=== PATIENT | female | born 1985 | race Caucasian/White ===

== ENCOUNTER 2016-10-12 22:51 | Emergency (ER) | payer OTHER ==
[2016-10-12 22:59] VITALS: TEMP 98.4
[2016-10-13] MEDS ORDERED: IBUPROFEN 600 MG TAB PO STA (00:08)
--- NOTE | 2016-10-13 00:13 | ED ---
Chest Pain HPI - General Chief Complaint: Chest Pain Stated Complaint: chest pains Time Seen by Provider: 10/12/16 23:56 Source: patient, RN notes reviewed Mode of arrival: ambulatory Limitations: no limitations - History of Present Illness Initial Comments: Patient is a 31-year-old female presents to the emergency room for evaluation of chest pain. Patient states she began developing chest pain yesterday while running. Patient states the pain is worse whenever she is walking or running. Patient states the pain is worse whenever she takes a deep breath. Patient denies smoking. Patient denies history of asthma. Patient denies taking anything for pain. Patient denies shortness of breath. Patient states the pain feels like a stabbing sensation in her midsternal area. Patient denies nausea or vomiting. Patient denies headache or dizziness. Patient states she has minimal pain while sitting still. Patient denies any recent trauma to her chest. Patient denies recent heavy lifting or changes in physical activity. Patient states the pain is worse when she presses over her chest. Patient denies fevers or chills. - Related Data Previous Rx's Medication Instructions Recorded HYDROcodone/APAP 5-325MG [[place] 1 tab PO Q6HR PRN #20 tab 05/13/16 5-325] Penicillin V Potassium [Pen Vee K] 500 mg PO QID #40 tab 05/13/16 Ibuprofen [Motrin] 600 mg PO Q6HR PRN #20 tab 10/13/16 Allergies Allergy/AdvReac Type Severity Reaction Status Date / Time No Known Allergies Allergy Verified 10/12/16 22:59 Review of Systems ROS Statement: Those systems with pertinent positive or pertinent negative responses have been documented in the HPI. ROS Other: All systems not noted in ROS Statement are negative. EKG Findings - EKG Comments: EKG Findings:: Normal sinus rhythm, ventricular rate 90 bpm, NM interval 162 ms , QRS duration 80 ms, QT/QTC 350/446 ms Past Medical History Past Medical History: Fibromyalgia History of Any Multi-Drug Resistant Organisms: None Reported Past Surgical History: Tubal Ligation Past Psychological History: No Psychological Hx Reported Smoking Status: Never smoker Past Alcohol Use History: None Reported Past Drug Use History: None Reported General Exam - General Exam Comments Initial Comments: Sitting in exam room, no acute distress. Limitations: no limitations General appearance: alert, in no apparent distress Head exam: Present: atraumatic, normocephalic, normal inspection Eye exam: Present: normal appearance ENT exam: Present: normal exam Neck exam: Present: normal inspection Respiratory exam: Present: normal lung sounds bilaterally, chest wall tenderness (Reproducible midsternal chest wall tenderness.). Absent: respiratory distress Cardiovascular Exam: Present: regular rate, normal rhythm, normal heart sounds GI/Abdominal exam: Present: soft. Absent: distended, tenderness, guarding, rebound, rigid Extremities exam: Present: normal inspection Back exam: Present: normal inspection Neurological exam: Present: alert, oriented X3, CN II-XII intact, normal gait Psychiatric exam: Present: normal affect, normal mood Skin exam: Present: warm, dry, intact, normal color. Absent: rash Course Vital Signs 10/12/16 10/13/16 22:57 01:11 Temperature 98.4 F Pulse Rate 90 76 Respiratory 18 16 Rate Blood Pressure 128/75 123/65 O2 Sat by Pulse 98 99 Oximetry Chest Pain [facility] Patient is a 31-year-old female presents to the emergency room for evaluation chest pain. Chest pain is reproducible on palpation. Chest x-ray shows no acute findings. EKG within normal limits. Patient states she feels better after ibuprofen given. Chest pain most likely related to chest wall tenderness. Advised patient to refrain from physical activity and to follow up with her primary care provider in 24-48 hours. Patient states she understands everything that was discussed with her. Return parameters discussed. Case discussed with Dr. Kay. Disposition Clinical Impression: Costochondritis, acute Disposition: HOME SELF-CARE Condition: Good Instructions: Costochondritis (ED) Additional Instructions: Take ibuprofen as needed for pain. Refrain from heavy lifting. Please follow up with primary care provider for reevaluation in 24-48 hours. If any new symptom arises or symptoms worsen, return to ER as soon as possible. Prescriptions: Ibuprofen [Motrin] 600 mg PO Q6HR PRN #20 tab PRN Reason: Pain Referrals: Nasim Resendiz MD [Primary Care Provider] - 1-2 days Time of Disposition: :
--- NOTE | 2016-10-13 00:57 | XR ---
EXAM: XR Chest, 2 Views CLINICAL HISTORY: Cough. TECHNIQUE: Frontal and lateral views of the chest. COMPARISON: CXR dated 03/21/2014. FINDINGS: Lungs: No focal consolidation. No evidence of pulmonary edema. Pleural space: No pleural effusion. No pneumothorax. Heart: Unremarkable. No cardiomegaly. Mediastinum: Unremarkable. Bones/joints: Unremarkable. IMPRESSION: No radiographic evidence of acute cardiopulmonary process.
[2016-10-13 01:11] VITALS: BP 123/65; PULSE 76; RESP 16
== END 2016-10-13 01:11 | disposition home or self-care (01) ==
LOC: EC 22:51
DX: M94.0 Chondrocostal junction syndrome [Tietze] (principal)
CPT/HCPCS: 71020; 93005; 99285

== ENCOUNTER 2016-11-06 21:23 | Emergency (ER) | payer OTHER ==
[2016-11-06 21:37] VITALS: BP 110/64; PULSE 85; RESP 16; TEMP 98.9
[2016-11-06] MEDS ORDERED: CYCLOBENZAPRINE 10 MG TAB PO STA (21:46)
--- NOTE | 2016-11-06 21:50 | ED ---
General Adult HPI - General Chief complaint: Headache Stated complaint: Headache x 4 Time Seen by Provider: 11/06/16 21:39 Source: patient, RN notes reviewed Mode of arrival: ambulatory Limitations: no limitations - History of Present Illness Initial comments: 31-year-old female presents emergency Department chief complaint left-sided neck , head pain. Patient states that this isn't present last 4 days. She states the symptoms always been in the morning gets worse with the day. She states that has gone away. Patient states that it hurts when she looks left and right are when she tilts back. She states that feels like it's in the muscle in the sharp pain. Patient denies any trauma. She states she woke up felt that she slept wrong. Patient denies any blurred vision, dizziness, fever, chills, trauma, focal weakness. Patient states that she does take [place] currently he states that does alleviate the symptoms went wears off it comes back. - Related Data Home Medications Medication Instructions Recorded Confirmed DULoxetine HCL [Cymbalta] 30 mg PO DAILY 11/06/16 11/06/16 Previous Rx's Medication Instructions Recorded HYDROcodone/APAP 5-325MG [[place] 1 tab PO Q6HR PRN #20 tab 05/13/16 5-325] Allergies Allergy/AdvReac Type Severity Reaction Status Date / Time No Known Allergies Allergy Verified 11/06/16 21:37 Review of Systems ROS Statement: Those systems with pertinent positive or pertinent negative responses have been documented in the HPI. ROS Other: All systems not noted in ROS Statement are negative. Past Medical History Past Medical History: Fibromyalgia History of Any Multi-Drug Resistant Organisms: None Reported Past Surgical History: Tubal Ligation Past Psychological History: No Psychological Hx Reported Smoking Status: Never smoker Past Alcohol Use History: None Reported Past Drug Use History: None Reported General Exam Limitations: no limitations General appearance: alert, in no apparent distress Head exam: Present: atraumatic, normocephalic, normal inspection Eye exam: Present: normal appearance, PERRL, EOMI. Absent: scleral icterus, conjunctival injection, periorbital swelling ENT exam: Present: normal exam, normal oropharynx, mucous membranes moist, TM's normal bilaterally, normal external ear exam Neck exam: Present: normal inspection, tenderness (tenderness over the left trapezius, paraspinal no vertebral tenderness and no step-off deformity), full ROM (moderate discomfort with rotation left Monday and extension of the neck). Absent: meningismus, lymphadenopathy Respiratory exam: Present: normal lung sounds bilaterally. Absent: respiratory distress, wheezes, rales, rhonchi, stridor Cardiovascular Exam: Present: regular rate, normal rhythm, normal heart sounds. Absent: systolic murmur, diastolic murmur, rubs, gallop, clicks Extremities exam: Present: other (full strength all extremities equal bilaterally) Neurological exam: Present: alert, oriented X3, CN II-XII intact, reflexes normal. Absent: motor sensory deficit Skin exam: Present: warm, dry, intact, normal color. Absent: rash Course Vital Signs 11/06/16 21:35 Temperature 98.9 F Pulse Rate 85 Respiratory 16 Rate Blood Pressure 110/64 O2 Sat by Pulse 99 Oximetry Medical Decision Making - Medical Decision Making 31-year-old female presented for head and neck pain. Patient has left trapezius muscle spasm and she has headache related to this. Patient has no neurological deficits. Patient's symptoms to come and go worse throughout the day after she's been up and moving more. Patient be discharged on Flexeril advised to do gentle stretching, heat and ice for 20 minutes at time. Return parameters were discussed. Disposition Clinical Impression: Trapezius muscle strain, Trapezius muscle spasm Disposition: HOME SELF-CARE Condition: Stable Instructions: Muscle Spasm (ED) Additional Instructions: Please return to the Emergency Department if symptoms worsen or any other concerns. Referrals: Nasim Resendiz MD [Primary Care Provider] - 1-2 days Time of Disposition: 21:50
== END 2016-11-06 22:00 | disposition home or self-care (01) ==
LOC: EC 21:23
DX: S29.012A Strain of muscle and tendon of back wall of thorax, initial encounter (principal); R51 Headache; M79.7 Fibromyalgia; Z79.899 Other long term (current) drug therapy; X58.XXXA Exposure to other specified factors, initial encounter
CPT/HCPCS: 99283

== ENCOUNTER 2017-01-14 16:39 | Emergency (ER) | payer OTHER ==
--- NOTE | 2017-01-14 17:04 | ED ---
General Adult HPI - General Chief complaint: Extremity Injury, Lower Stated complaint: Right Ankle Pain Time Seen by Provider: 01/14/17 16:50 Source: patient, RN notes reviewed Mode of arrival: ambulatory Limitations: no limitations - History of Present Illness Initial comments: This is a 31-year-old female comes into the emergency department complaining that her right ankle hurts. Patient states she twisted 2 weeks ago and she decided to get it checked today. Patient states is a little area of tenderness on the lateral aspect of her right ankle. Patient denies any medial ankle pain. Patient denies any foot or heel pain. Patient denies any other symptoms. - Related Data Home Medications Medication Instructions Recorded Confirmed DULoxetine HCL [Cymbalta] 60 mg PO DAILY 11/06/16 01/14/17 Previous Rx's Medication Instructions Recorded HYDROcodone/APAP 5-325MG [[place] 1 tab PO Q6HR PRN #20 tab 05/13/16 5-325] Ibuprofen [Motrin] 600 mg PO Q6HR PRN #20 tab 01/14/17 Allergies Allergy/AdvReac Type Severity Reaction Status Date / Time No Known Allergies Allergy Verified 01/14/17 16:52 Review of Systems ROS Statement: Those systems with pertinent positive or pertinent negative responses have been documented in the HPI. ROS Other: All systems not noted in ROS Statement are negative. Past Medical History Past Medical History: Fibromyalgia History of Any Multi-Drug Resistant Organisms: None Reported Past Surgical History: Tubal Ligation Past Psychological History: No Psychological Hx Reported Smoking Status: Never smoker Past Alcohol Use History: None Reported Past Drug Use History: None Reported General Exam - General Exam Comments Initial Comments: GENERAL Patient is well-developed and well-nourished. Patient is in mild distress. EYES Patient's pupils are equal and round. Extraocular motion is intact SKIN Unremarkable NEURO The patient is alert and oriented 3 PYSCH Patient has normal interpersonal interactions. MUSCULOSKELETAL Right ankle shows some swelling on the lateral aspect of the malleolus Limitations: no limitations Course Vital Signs 01/14/17 16:50 Temperature 98.0 F Pulse Rate 99 Respiratory 18 Rate Blood Pressure 110/66 O2 Sat by Pulse 99 Oximetry Medical Decision Making - Medical Decision Making X-ray of the ankle shows no acute injury Disposition Clinical Impression: Sprained ankle Disposition: HOME SELF-CARE Instructions: Ankle Sprain (ED) Prescriptions: Ibuprofen [Motrin] 600 mg PO Q6HR PRN #20 tab PRN Reason: For pain Referrals: Nasim Resendiz MD [Primary Care Provider] - 1-2 days Time of Disposition: 18:26
--- NOTE | 2017-01-14 18:09 | XR ---
Exam: Right ankle complete 3 views of the right ankle were obtained. HISTORY: Twisting injury 2 weeks ago with continued pain. FINDINGS: No acute fracture or subluxation is identified. The ankle mortise is intact. There is no radiopaque f oreign body. IMPRESSION: No acute abnormality is identified.
[2017-01-14 18:43] VITALS: BP 109/65; PULSE 88; RESP 16; TEMP 97.9
== END 2017-01-14 18:44 | disposition home or self-care (01) ==
LOC: EC 16:39
DX: S93.401A Sprain of unspecified ligament of right ankle, initial encounter (principal); M79.7 Fibromyalgia; Z79.899 Other long term (current) drug therapy; X50.1XXA Overexertion from prolonged static or awkward postures, initial encounter
CPT/HCPCS: 99283

== ENCOUNTER 2017-12-07 15:54 | Emergency (ER) | payer OTHER ==
[2017-12-07 16:01] VITALS: BP 117/78; PULSE 76; RESP 18; TEMP 98
--- NOTE | 2017-12-07 16:42 | ED ---
Lower Extremity Injury HPI - General Chief Complaint: Extremity Injury, Lower Stated Complaint: foot injury Time Seen by Provider: 12/07/17 16:20 Source: patient, RN notes reviewed Mode of arrival: ambulatory Limitations: no limitations - History of Present Illness Initial Comments: This is a 32-year-old female who presents to the emergency department with chief complaint of right foot injury. Patient states that earlier today she was playing basketball barefoot. She states that she twisted funny and cut the bottom of her right foot. Denies any bleeding. Denies any other injuries or trauma. Denies recent fevers or chills, chest pain or shortness of breath, abdominal pain, nausea or vomiting, numbness or tingling. - Related Data Home Medications Medication Instructions Recorded Confirmed DULoxetine HCL [Cymbalta] 60 mg PO DAILY 12/07/17 12/07/17 HYDROcodone/APAP 5-325MG [[place] 1 tab PO Q6HR PRN 12/07/17 12/07/17 5-325] Allergies Allergy/AdvReac Type Severity Reaction Status Date / Time No Known Allergies Allergy Verified 12/07/17 16:13 Review of Systems ROS Statement: Those systems with pertinent positive or pertinent negative responses have been documented in the HPI. ROS Other: All systems not noted in ROS Statement are negative. Past Medical History Past Medical History: Fibromyalgia History of Any Multi-Drug Resistant Organisms: None Reported Past Surgical History: Tubal Ligation Past Psychological History: No Psychological Hx Reported Smoking Status: Never smoker Past Alcohol Use History: None Reported Past Drug Use History: None Reported General Exam - General Exam Comments Initial Comments: General: Awake and alert, well-developed; in no apparent distress. HEENT: Head atraumatic, normocephalic. Pupils are equal, round and reactive to light. Extraocular movements intact. Oropharynx moist without erythema or exudate. Neck: Supple. Normal ROM. Cardiovascular: Regular rate and rhythm. No murmurs, rubs or gallops. Chest symmetrical. Respiratory: Lungs clear to auscultation bilaterally. No wheezes, rales or rhonchi. Normal respiratory effort with no use of accessory muscles. Musculoskeletal: Normal ROM, no tenderness bilateral upper and lower extremities. Ambulating normally. Skin: [employer], warm and dry with flap-like skin avulsion right plantar surface just proximal to the fourth and fifth digits. No bleeding. Neurological: Alert and oriented x3. CN II-XII grossly intact. Speech is fluent and answers are appropriate. No focal neuro deficits. Psychiatric: Normal mood and affect. No overt signs of depression or anxiety noted. Limitations: no limitations Course Vital Signs 12/07/17 16:00 Temperature 98 F Pulse Rate 76 Respiratory 18 Rate Blood Pressure 117/78 O2 Sat by Pulse 98 Oximetry Medical Decision Making - Medical Decision Making This is a 32-year-old female who presents to the emergency department with chief complaint of right foot injury. Patient cut the bottom of her foot on cement while playing basketball earlier today. She sustained a very superficial , small flap-like skin avulsion to the plantar surface of her right foot. No bleeding. Normal range of motion and is neurovascularly intact. She will be discharged home at this time. She is in no acute distress. Vital signs are stable. She is in agreement and voices understanding. All questions answered. Disposition Clinical Impression: Skin avulsion Disposition: HOME SELF-CARE Condition: Good Instructions: Skin Avulsion (ED) Additional Instructions: Please follow up with primary care provider within 1-2 days. Return to emergency department if symptoms should worsen or any concerns arise. Is patient prescribed a controlled substance at d/c from ED?: No Referrals: Nasim Resendiz MD [Primary Care Provider] - 1-2 days Time of Disposition: 16:42
== END 2017-12-07 16:52 | disposition home or self-care (01) ==
LOC: EC 15:54
DX: S91.301A Unspecified open wound, right foot, initial encounter (principal); Z79.899 Other long term (current) drug therapy; X50.1XXA Overexertion from prolonged static or awkward postures, initial encounter; Y93.67 Activity, basketball
CPT/HCPCS: 99283

== ENCOUNTER 2018-04-11 18:21 | Emergency (ER) | payer OTHER ==
[2018-04-11 18:34] VITALS: RESP 18
[2018-04-11] MEDS ORDERED: SODIUM CHLORIDE 0.9% 1,000 ML IV STA (19:23)
[2018-04-11] MEDS ORDERED: KETOROLAC 30 MG/ML 1 ML VIAL IVP STA (19:23)
[2018-04-11] MEDS ORDERED: ONDANSETRON 4 MG/2 ML VIAL IVP STA (19:26)
--- NOTE | 2018-04-11 20:06 | ED ---
General Adult HPI - General Chief complaint: Back Pain/Injury Stated complaint: back pain Time Seen by Provider: 04/11/18 19:00 Source: patient, RN notes reviewed Mode of arrival: ambulatory Limitations: no limitations - History of Present Illness Initial comments: 32-year-old female with a history of fibromyalgia presents to the emergency department for right flank pain times one day. Patient states this is somewhat consistent with her fibromyalgia but is somewhat worse. Patient states it is sharp and radiating around her side. Patient denies any radiating pain into her groin. Patient denies any abdominal pain. She does admit to nausea but denies any vomiting or diarrhea. Patient states she has been taking [place] for the pain but it has not been helping. Patient denies any midline spine pain. She denies any saddle anesthesia or changes in bladder or bowel movements. Patient denies any urinary symptoms such as pain with urination or urinary frequency. She denies noting any blood in the urine. Patient denies a history of kidney stones. Patient has no other complaints at this time including shortness of breath, chest pain, abdominal pain, headache, or visual changes. - Related Data Home Medications Medication Instructions Recorded Confirmed DULoxetine HCL [Cymbalta] 60 mg PO DAILY 12/07/17 04/11/18 HYDROcodone/APAP 5-325MG [[place] 1 tab PO Q6HR PRN 12/07/17 04/11/18 5-325] Previous Rx's Medication Instructions Recorded Cephalexin [Keflex] 500 mg PO Q6HR 10 Days cap 04/11/18 Allergies Allergy/AdvReac Type Severity Reaction Status Date / Time No Known Allergies Allergy Verified 04/11/18 23:18 Review of Systems ROS Statement: Those systems with pertinent positive or pertinent negative responses have been documented in the HPI. ROS Other: All systems not noted in ROS Statement are negative. Past Medical History Past Medical History: Fibromyalgia History of Any Multi-Drug Resistant Organisms: None Reported Past Surgical History: Tubal Ligation Past Psychological History: No Psychological Hx Reported Smoking Status: Never smoker Past Alcohol Use History: None Reported Past Drug Use History: None Reported General Exam Limitations: no limitations General appearance: alert, in no apparent distress Head exam: Present: atraumatic, normocephalic, normal inspection Eye exam: Present: normal appearance, PERRL, EOMI. Absent: scleral icterus, conjunctival injection, periorbital swelling ENT exam: Present: normal exam, mucous membranes moist Neck exam: Present: normal inspection, full ROM. Absent: tenderness, meningismus, lymphadenopathy Respiratory exam: Present: normal lung sounds bilaterally. Absent: respiratory distress, wheezes, rales, rhonchi, stridor Cardiovascular Exam: Present: regular rate, normal rhythm, normal heart sounds. Absent: systolic murmur, diastolic murmur, rubs, gallop, clicks GI/Abdominal exam: Present: soft, normal bowel sounds. Absent: distended, tenderness, guarding, rebound, rigid Back exam: Present: CVA tenderness (R). Absent: CVA tenderness (L) Neurological exam: Present: alert, oriented X3, CN II-XII intact Psychiatric exam: Present: normal affect, normal mood Course Vital Signs 04/11/18 04/11/18 18:31 21:44 Temperature 98.2 F 97.8 F Pulse Rate 87 64 Respiratory 18 18 Rate Blood Pressure 125/75 117/72 O2 Sat by Pulse 100 99 Oximetry Medical Decision Making - Medical Decision Making 32-year-old female presents to the emergency determine for chief of right flank pain times one day. Patient denies any radiating pain to her groin. She denies any urinary symptoms. Patient denies any abdominal pain. On exam patient does have right CVA tenderness. Cells are stable and patient is afebrile. White blood cell count 17.1, CMP unremarkable. Urine shows evidence of infection. CT shows new right-sided hydronephrosis and proximal hydroureter compared to old exam. she was seen which could relate to nonopaque stone or recently passed stone. Patient likely has a pyelonephritis which is causing her right flank pain. Patient was given a dose of Rocephin here in the emergency department. She will be started on Keflex 4 times daily and discharged home. Patient agrees with this plan of care and states she would like to go home. Patient will follow up with primary care or urology in 1-2 days. Patient will return immediately to the emergency Department if she has any worsening symptoms or fevers. - Lab Data Result diagrams: 04/11/18 20:05 04/11/18 20:05 Lab Results 04/11/18 04/11/18 04/11/18 Range/Units 20:05 20:05 20:05 WBC 17.1 H (3.8-10.6) k/uL RBC 4.51 (3.80-5.40) m/uL Hgb 13.2 (11.4-16.0) gm/dL Hct 39.9 (34.0-46.0) % MCV 88.5 (80.0-100.0) fL MCH 29.1 (25.0-35.0) pg MCHC 33.0 (31.0-37.0) g/dL RDW 13.5 (11.5-15.5) % Plt Count 256 (150-450) k/uL Neutrophils % 74 % Lymphocytes % 18 % Monocytes % 5 % Eosinophils % 2 % Basophils % 0 % Neutrophils # 12.7 H (1.3-7.7) k/uL Lymphocytes # 3.0 (1.0-4.8) k/uL Monocytes # 0.8 (0-1.0) k/uL Eosinophils # 0.3 (0-0.7) k/uL Basophils # 0.1 (0-0.2) k/uL Sodium 139 (137-145) mmol/L Potassium 4.0 (3.5-5.1) mmol/L Chloride 108 H (98-107) mmol/L Carbon Dioxide 24 (22-30) mmol/L Anion Gap 7 mmol/L BUN 9 (7-17) mg/dL Creatinine 0.64 (0.52-1.04) mg/dL Est GFR (CKD-EPI)AfAm >90 (>60 ml/min/1.73 sqM) Est GFR (CKD-EPI)NonAf >90 (>60 ml/min/1.73 sqM) Glucose 87 (74-99) mg/dL Calcium 9.7 (8.4-10.2) mg/dL Total Bilirubin 0.3 (0.2-1.3) mg/dL AST 17 (14-36) U/L ALT 25 (9-52) U/L Alkaline Phosphatase 95 (38-126) U/L Total Protein 7.2 (6.3-8.2) g/dL Albumin 3.9 (3.5-5.0) g/dL Amylase 57 (30-110) U/L Lipase 56 (23-300) U/L Urine Color Urine Appearance (Clear) Urine pH (5.0-8.0) Ur Specific [place] (1.001-1.035) Urine Protein (Negative) Urine Glucose (UA) (Negative) Urine Ketones (Negative) Urine Blood (Negative) Urine Nitrite (Negative) Urine Bilirubin (Negative) Urine Urobilinogen (<2.0) mg/dL Ur Leukocyte Esterase (Negative) Urine RBC (0-5) /hpf Urine WBC (0-5) /hpf Urine WBC Clumps (None) /hpf Ur Squamous Epith Cells (0-4) /hpf Urine Bacteria (None) /hpf Urine Mucus (None) /hpf Urine HCG, Qual Not Detected (Not Detectd) 04/11/18 Range/Units 20:05 WBC (3.8-10.6) k/uL RBC (3.80-5.40) m/uL Hgb (11.4-16.0) gm/dL Hct (34.0-46.0) % MCV (80.0-100.0) fL MCH (25.0-35.0) pg MCHC (31.0-37.0) g/dL RDW (11.5-15.5) % Plt Count (150-450) k/uL Neutrophils % % Lymphocytes % % Monocytes % % Eosinophils % % Basophils % % Neutrophils # (1.3-7.7) k/uL Lymphocytes # (1.0-4.8) k/uL Monocytes # (0-1.0) k/uL Eosinophils # (0-0.7) k/uL Basophils # (0-0.2) k/uL Sodium (137-145) mmol/L Potassium (3.5-5.1) mmol/L Chloride (98-107) mmol/L Carbon Dioxide (22-30) mmol/L Anion Gap mmol/L BUN (7-17) mg/dL Creatinine (0.52-1.04) mg/dL Est GFR (CKD-EPI)AfAm (>60 ml/min/1.73 sqM) Est GFR (CKD-EPI)NonAf (>60 ml/min/1.73 sqM) Glucose (74-99) mg/dL Calcium (8.4-10.2) mg/dL Total Bilirubin (0.2-1.3) mg/dL AST (14-36) U/L ALT (9-52) U/L Alkaline Phosphatase (38-126) U/L Total Protein (6.3-8.2) g/dL Albumin (3.5-5.0) g/dL Amylase (30-110) U/L Lipase (23-300) U/L Urine Color Yellow Urine Appearance Cloudy H (Clear) Urine pH 6.5 (5.0-8.0) Ur Specific [place] 1.011 (1.001-1.035) Urine Protein 1+ H (Negative) Urine Glucose (UA) Negative (Negative) Urine Ketones Negative (Negative) Urine Blood Moderate H (Negative) Urine Nitrite Positive H (Negative) Urine Bilirubin Negative (Negative) Urine Urobilinogen <2.0 (<2.0) mg/dL Ur Leukocyte Esterase Large H (Negative) Urine RBC 31 H (0-5) /hpf Urine WBC >182 H (0-5) /hpf Urine WBC Clumps Many H (None) /hpf Ur Squamous Epith Cells 1 (0-4) /hpf Urine Bacteria Many H (None) /hpf Urine Mucus Few H (None) /hpf Urine HCG, Qual (Not Detectd) Disposition Clinical Impression: Pyelonephritis Disposition: HOME SELF-CARE Condition: Good Instructions: Kidney Infection (ED) Additional Instructions: Please take antibiotic as directed. Please take home pain medications for pain. Please return immediately to the emergency department if you develop fever or any worsening symptoms. Follow up with urology in 1-2 days. Prescriptions: Cephalexin [Keflex] 500 mg PO Q6HR 10 Days cap Is patient prescribed a controlled substance at d/c from ED?: No Referrals: Nasim Resendiz MD [Primary Care Provider] - 1-2 days Dante Ann MD [STAFF PHYSICIAN] - 1-2 days Time of Disposition: 23:08
[2018-04-11 20:20] LABS: Basophils # (A) 0.1 k/uL (0-0.2); Basophils % (A) 0 %; Eosinophils # (A) 0.3 k/uL (0-0.7); Eosinophils % (A) 2 %; HCT 39.9 % (34.0-46.0); HGB 13.2 gm/dL (11.4-16.0); Lymphocytes % (A) 18 %; MCH 29.1 pg (25.0-35.0); MCV 88.5 fL (80.0-100.0); Monocytes # (A) 0.8 k/uL (0-1.0); Monocytes % (A) 5 %; Neutrophils # (A) 12.7 k/uL (1.3-7.7); Neutrophils % (A) 74 %; Platelet Count 256 k/uL (150-450); RBC 4.51 m/uL (3.80-5.40); RDW 13.5 % (11.5-15.5); WBC 17.1 k/uL (3.8-10.6)
[2018-04-11 20:31] LABS: Appearance,Urine Cloudy (Clear); Bacteria,Urine Many /hpf; Bilirubin,Urine Negative (Negative); Blood,Urine Moderate (Negative); Color,Urine Yellow; Glucose,Urine (UA) Negative (Negative); Ketones,Urine Negative (Negative); Leukocyte Esterase,Urine Large (Negative); Mucus,Urine Few /hpf; Nitrite,Urine Positive (Negative); PH, Urine 6.5 (5.0-8.0); Protein,Urine 1+ (Negative); RBC,Urine 31 /hpf (0-5); Specific Gravity,Urine 1.011 (1.001-1.035); Squamous Epithelial Cell,Urine 1 /hpf (0-4); Urobilinogen,Urine <2.0 mg/dL (<2.0); WBC,Urine >182 /hpf (0-5)
[2018-04-11 20:32] LABS: ALT 25 U/L (9-52); AST 17 U/L (14-36); Albumin 3.9 g/dL (3.5-5.0); Alkaline Phosphatase 95 U/L (38-126); Amylase 57 U/L (30-110); Anion Gap 7 mmol/L; Blood Urea Nitrogen 9 mg/dL (7-17); Calcium 9.7 mg/dL (8.4-10.2); Carbon Dioxide 24 mmol/L (22-30); Chloride 108 mmol/L (98-107); Glucose 87 mg/dL (74-99); Lipase 56 U/L (23-300); Sodium 139 mmol/L (137-145); Total Bilirubin 0.3 mg/dL (0.2-1.3); Total Protein 7.2 g/dL (6.3-8.2)
--- NOTE | 2018-04-11 20:42 | CT ---
EXAMINATION TYPE: CT abdomen pelvis wo con DATE OF EXAM: 04/11/2018 COMPARISON: 08/28/2010 HISTORY: MIDDLE TO LOWER BACK PAIN CT DLP: 654.1 mGycm Automated exposure control for dose reduction was used. TECHNIQUE: Helical acquisition of images was performed from the lung bases through the pelvis. FINDINGS: The lung bases are clear. There is no pleural effusion. Heart size is normal. There is no pericardial effusion. Liver spleen pancreas gallbladder appear normal. Bile ducts are not dilated. There is no adrenal mass. Kidneys have normal size and contour. There is right-sided hydronephrosis a nd hydroureter. I see no definite ureteral calculus. Uterus is anteverted. Bladder distends smoothly. There is no free fluid in the pelvis. There is no inguinal hernia. Lumbar vertebra have normal spacing and alignment. Posterior elements are intact. Bony pelvis appears intact. I see no bony destructive process. There is no mesenteric adenopathy or edema. I see no intestinal wall thickening. There are no dilated loops. There are a few lymph nodes around the cecum. There is a clip probably from appendectomy. IMPRESSION: THERE IS NEW RIGHT-SIDED HYDRONEPHROSIS AND PROXIMAL HYDROURETER COMPARED TO OLD EXAM. NO CALCULUS SE EN. THIS COULD RELATE TO NONOPAQUE STONE OR RECENTLY PASSED STONE.
[2018-04-11 21:46] VITALS: BP 117/72; PULSE 64; TEMP 97.8
== END 2018-04-12 00:01 | disposition home or self-care (01) ==
LOC: EC 18:21
DX: N12 Tubulo-interstitial nephritis, not specified as acute or chronic (principal); N13.30 Unspecified hydronephrosis; M79.7 Fibromyalgia; Z79.899 Other long term (current) drug therapy
CPT/HCPCS: 36415; 80053; 82150; 83690; 85025; 81001; 81025; 87086; 74176; 99284; 96365; 96375 ×2; 96361 ×3; J2405; J0696; J1885

== ENCOUNTER 2019-11-22 22:14 | Emergency (ER) | payer OTHER ==
[2019-11-22 22:30] VITALS: RESP 18
--- NOTE | 2019-11-22 23:08 | XR ---
EXAMINATION TYPE: XR foot complete RT DATE OF EXAM: 11/22/2019 COMPARISON: None HISTORY: Foot pain TECHNIQUE: 3 views FINDINGS: Metatarsals appear intact. I see no fracture nor dislocation. Joint spaces are normal. Ther e are no erosions. There is small plantar calcaneal spurring. IMPRESSION: Negative right foot exam. No fracture.
--- NOTE | 2019-11-22 23:29 | ED ---
Extremity Problem HPI - General Chief complaint: Extremity Problem,Nontraumatic Stated complaint: Rt foot pain Time Seen by Provider: 11/22/19 22:34 Source: patient Mode of arrival: ambulatory Limitations: no limitations - History of Present Illness Initial comments: Patient is a 34-year-old female presenting to the emergency department with chief complaint of foot pain. States the symptoms do not want for approximately 6 months. However, the symptoms have been increasing severity over the last month. States most of the pain is located along the anterior aspect of the right foot as well as the medial aspect near the heel. Patient reports pain is worse throughout today and she continues to work. 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 Denies any direct trauma to the region. Denies previous injuries or surgeries to the region. Denies any erythema or ecchymosis. Denies taking medication to alleviate the symptoms. - Related Data Home Medications Medication Instructions Recorded Confirmed DULoxetine HCL [Cymbalta] 60 mg PO DAILY 12/07/17 04/11/18 HYDROcodone/APAP 5-325MG [[place] 1 tab PO Q6HR PRN 12/07/17 04/11/18 5-325] Previous Rx's Medication Instructions Recorded Cephalexin [Keflex] 500 mg PO Q6HR 10 Days cap 04/11/18 Allergies Allergy/AdvReac Type Severity Reaction Status Date / Time No Known Allergies Allergy Verified 11/22/19 22:30 Review of Systems ROS Statement: Those systems with pertinent positive or pertinent negative responses have been documented in the HPI. ROS Other: All systems not noted in ROS Statement are negative. Past Medical History Past Medical History: Fibromyalgia History of Any Multi-Drug Resistant Organisms: None Reported Past Surgical History: Tubal Ligation Past Psychological History: No Psychological Hx Reported Smoking Status: Never smoker Past Alcohol Use History: None Reported Past Drug Use History: None Reported General Exam Limitations: no limitations General appearance: alert, in no apparent distress Head exam: Present: atraumatic, normocephalic, normal inspection Eye exam: Present: normal appearance, PERRL, EOMI Pupils: Present: normal accommodation ENT exam: Present: normal exam, normal oropharynx, mucous membranes moist Neck exam: Present: normal inspection, full ROM Respiratory exam: Present: normal lung sounds bilaterally. Absent: respiratory distress, wheezes, rales Cardiovascular Exam: Present: regular rate, normal rhythm, normal heart sounds Extremities exam: Present: normal inspection (No signs of swelling, erythema or ecchymosis.), tenderness (Dante along the medial aspect right foot near the heel.), normal capillary refill, other (+2 dorsalis pedis and posterior tibialis). Absent: full ROM (Limited range of motion due to pain with dorsiflexion.) Back exam: Present: normal inspection, full ROM Neurological exam: Present: alert, oriented X3 Psychiatric exam: Present: normal affect, normal mood Skin exam: Present: warm, dry, intact, normal color Course Vital Signs 11/22/19 11/22/19 22:29 23:43 Temperature 98.1 F 98.3 F Pulse Rate 81 78 Respiratory 18 18 Rate Blood Pressure 121/83 129/78 O2 Sat by Pulse 100 98 Oximetry Medical Decision Making - Medical Decision Making Patient is a 34-year-old female presenting to the emergency department with a chief complaint of right foot pain. Symptoms not going for the past 6 months with worsening of symptoms month. On exam patient has limited range of motion with dorsiflexion due to pain. Some mild tenderness along the medial aspect near the heel. X-rays unremarkable. There is no direct trauma to the region. Patient was to follow-up with electronic warfare specialist. Return parameters thoroughly discussed with patient was understanding and agreeable. Case discussed with physician. Disposition Clinical Impression: Foot pain, left Disposition: HOME SELF-CARE Condition: Stable Instructions (If sedation given, give patient instructions): Swollen Joint (ED) Additional Instructions: Please follow with electronic warfare specialist. Return to emergency department if symptoms worsen. Is patient prescribed a controlled substance at d/c from ED?: No Referrals: Nasim Resendiz MD [Primary Care Provider] - 1-2 days Time of Disposition: 23:29
[2019-11-22 23:43] VITALS: BP 129/78; PULSE 78; TEMP 98.3
== END 2019-11-22 23:43 | disposition home or self-care (01) ==
LOC: EC 22:14
DX: M79.671 Pain in right foot (principal); M79.7 Fibromyalgia; Z79.891 Long term (current) use of opiate analgesic
CPT/HCPCS: 99283

== ENCOUNTER 2020-02-22 23:53 | Emergency (ER) | payer OTHER ==
[2020-02-23 00:04] VITALS: TEMP 97.8
[2020-02-23] MEDS ORDERED: MAG HYDROX/AL HYDROX/SIMETH 30 ML, HYOSCYAMINE ELIXIR 10 ML, LIDOCAINE VISCOUS 2% 10 ML PO STA ×3 (00:28)
--- NOTE | 2020-02-23 00:32 | ED ---
Nausea/Vomiting/Diarrhea HPI - General Chief complaint: Nausea/Vomiting/Diarrhea Stated complaint: Nausea Time Seen by Provider: 02/23/20 00:20 Source: patient Mode of arrival: ambulatory Limitations: no limitations - History of Present Illness Initial comments: This patient is 34-year-old woman who presents to be evaluated for nausea, heartburn, and a nonproductive cough that is been going on for approximately one week. She denies fever or chills, dyspnea, productive cough, vomiting. She has had 3 loose bowel movements today no blood or dark tarry stools. There is no abdominal pain, difficulty with urination, or change in periods, her last period was 2 weeks ago and was normal. MD complaint: nausea, diarrhea Onset/Timin -: week(s) Associated Abdominal Pain: No Severity scale (1-10): 0 Improves with: none Worsens with: none Associated Symptoms: nausea/vomiting - Related Data Home Medications Medication Instructions Recorded Confirmed DULoxetine HCL [Cymbalta] 60 mg PO DAILY 12/07/17 04/11/18 HYDROcodone/APAP 5-325MG [[place] 1 tab PO Q6HR PRN 12/07/17 04/11/18 5-325] Previous Rx's Medication Instructions Recorded Cephalexin [Keflex] 500 mg PO Q6HR 10 Days cap 04/11/18 Famotidine [Pepcid] 20 mg PO BID #14 tablet 02/23/20 Allergies Allergy/AdvReac Type Severity Reaction Status Date / Time No Known Allergies Allergy Verified 02/23/20 00:04 Review of Systems ROS Statement: Those systems with pertinent positive or pertinent negative responses have been documented in the HPI. ROS Other: All systems not noted in ROS Statement are negative. Constitutional: Denies: fever Respiratory: Reports: cough. Denies: dyspnea Cardiovascular: Reports: chest pain (Heartburn). Denies: palpitations, edema Gastrointestinal: Reports: nausea, diarrhea. Denies: abdominal pain, vomiting, constipation, melena, hematochezia Genitourinary: Denies: dysuria Musculoskeletal: Denies: back pain Skin: Denies: rash Neurological: Denies: headache, weakness Past Medical History Past Medical History: Fibromyalgia History of Any Multi-Drug Resistant Organisms: None Reported Past Surgical History: Tubal Ligation Past Psychological History: No Psychological Hx Reported Smoking Status: Never smoker Past Alcohol Use History: None Reported Past Drug Use History: None Reported General Exam Limitations: no limitations General appearance: alert, in no apparent distress Head exam: Present: atraumatic Eye exam: Present: normal appearance ENT exam: Present: normal oropharynx Neck exam: Present: normal inspection Respiratory exam: Present: normal lung sounds bilaterally. Absent: respiratory distress, wheezes, rales, rhonchi, stridor Cardiovascular Exam: Present: regular rate, normal rhythm, normal heart sounds. Absent: systolic murmur, diastolic murmur, rubs, gallop GI/Abdominal exam: Present: soft. Absent: distended, tenderness, guarding, rebound, rigid, mass Extremities exam: Present: normal inspection, normal capillary refill. Absent: pedal edema, calf tenderness Back exam: Present: normal inspection. Absent: CVA tenderness (R), CVA tenderness (L) Neurological exam: Present: alert Skin exam: Present: warm, dry, intact, normal color. Absent: rash Course Vital Signs 02/23/20 00:02 Temperature 97.8 F Pulse Rate 93 Respiratory 16 Rate Blood Pressure 133/84 O2 Sat by Pulse 100 Oximetry Medical Decision Making - Lab Data Result diagrams: 02/23/20 00:53 02/23/20 00:53 Lab Results 02/23/20 02/23/20 02/23/20 Range/Units 00:53 00:53 00:53 WBC 12.7 H (3.8-10.6) k/uL RBC 4.96 (3.80-5.40) m/uL Hgb 13.8 (11.4-16.0) gm/dL Hct 43.7 (34.0-46.0) % MCV 88.0 (80.0-100.0) fL MCH 27.8 (25.0-35.0) pg MCHC 31.6 (31.0-37.0) g/dL RDW 13.3 (11.5-15.5) % Plt Count 306 (150-450) k/uL Neutrophils % 62 % Lymphocytes % 29 % Monocytes % 4 % Eosinophils % 3 % Basophils % 1 % Neutrophils # 7.8 H (1.3-7.7) k/uL Lymphocytes # 3.7 (1.0-4.8) k/uL Monocytes # 0.5 (0-1.0) k/uL Eosinophils # 0.4 (0-0.7) k/uL Basophils # 0.1 (0-0.2) k/uL Sodium 137 (137-145) mmol/L Potassium 4.4 (3.5-5.1) mmol/L Chloride 105 (98-107) mmol/L Carbon Dioxide 24 (22-30) mmol/L Anion Gap 8 mmol/L BUN 13 (7-17) mg/dL Creatinine 0.81 (0.52-1.04) mg/dL Est GFR (CKD-EPI)AfAm >90 (>60 ml/min/1.73 sqM) Est GFR (CKD-EPI)NonAf >90 (>60 ml/min/1.73 sqM) Glucose 96 (74-99) mg/dL Calcium 9.5 (8.4-10.2) mg/dL Total Bilirubin 0.4 (0.2-1.3) mg/dL AST 24 (14-36) U/L ALT 23 (4-34) U/L Alkaline Phosphatase 107 (38-126) U/L Total Protein 7.5 (6.3-8.2) g/dL Albumin 4.3 (3.5-5.0) g/dL Amylase 50 (30-110) U/L Lipase 85 (23-300) U/L Urine Color Yellow Urine Appearance Clear (Clear) Urine pH 5.5 (5.0-8.0) Ur Specific [place] 1.016 (1.001-1.035) Urine Protein Negative (Negative) Urine Glucose (UA) Negative (Negative) Urine Ketones Negative (Negative) Urine Blood Negative (Negative) Urine Nitrite Negative (Negative) Urine Bilirubin Negative (Negative) Urine Urobilinogen <2.0 (<2.0) mg/dL Ur Leukocyte Esterase Negative (Negative) Disposition Clinical Impression: Esophagitis Disposition: HOME SELF-CARE Condition: Fair Instructions (If sedation given, give patient instructions): Viral Syndrome (ED) Prescriptions: Famotidine [Pepcid] 20 mg PO BID #14 tablet Is patient prescribed a controlled substance at d/c from ED?: No Referrals: Nasim Resendiz MD [Primary Care Provider] - 1-2 days
[2020-02-23 01:10] LABS: Appearance,Urine Clear (Clear); Basophils # (A) 0.1 k/uL (0-0.2); Basophils % (A) 1 %; Bilirubin,Urine Negative (Negative); Blood,Urine Negative (Negative); Color,Urine Yellow; Eosinophils # (A) 0.4 k/uL (0-0.7); Eosinophils % (A) 3 %; Glucose,Urine (UA) Negative (Negative); HCT 43.7 % (34.0-46.0); HGB 13.8 gm/dL (11.4-16.0); Ketones,Urine Negative (Negative); Leukocyte Esterase,Urine Negative (Negative); Lymphocytes # (A) 3.7 k/uL (1.0-4.8); Lymphocytes % (A) 29 %; MCH 27.8 pg (25.0-35.0); MCHC 31.6 g/dL (31.0-37.0); Mean Platelet Volume 7.7; Monocytes # (A) 0.5 k/uL (0-1.0); Monocytes % (A) 4 %; Neutrophils # (A) 7.8 k/uL (1.3-7.7); Neutrophils % (A) 62 %; Nitrite,Urine Negative (Negative); PH, Urine 5.5 (5.0-8.0); Platelet Count 306 k/uL (150-450); Protein,Urine Negative (Negative); RBC 4.96 m/uL (3.80-5.40); RDW 13.3 % (11.5-15.5); Specific Gravity,Urine 1.016 (1.001-1.035); Urobilinogen,Urine <2.0 mg/dL (<2.0); WBC 12.7 k/uL (3.8-10.6)
[2020-02-23 01:28] LABS: ALT 23 U/L (4-34); AST 24 U/L (14-36); African American GFR (CKD) >90 (>60 ml/min/1.73 sqM); Albumin 4.3 g/dL (3.5-5.0); Alkaline Phosphatase 107 U/L (38-126); Amylase 50 U/L (30-110); Anion Gap 8 mmol/L; Blood Urea Nitrogen 13 mg/dL (7-17); Calcium 9.5 mg/dL (8.4-10.2); Carbon Dioxide 24 mmol/L (22-30); Chloride 105 mmol/L (98-107); Glucose 96 mg/dL (74-99); Non-African American GFR(CKD) >90 (>60 ml/min/1.73 sqM); Potassium 4.4 mmol/L (3.5-5.1); Sodium 137 mmol/L (137-145); Total Bilirubin 0.4 mg/dL (0.2-1.3); Total Protein 7.5 g/dL (6.3-8.2)
[2020-02-23 02:45] VITALS: BP 100/75; PULSE 80; RESP 17
== END 2020-02-23 02:42 | disposition home or self-care (01) ==
LOC: EC 23:53
DX: K20.9 Esophagitis, unspecified (principal); M79.7 Fibromyalgia; Z79.899 Other long term (current) drug therapy; Z98.51 Tubal ligation status
CPT/HCPCS: 36415; 80053; 81003; 82150; 83690; 85025; 99284

== ENCOUNTER → 2020-03-04 | Outpatient (CLI) | payer OTHER | END | disposition home or self-care (01) | LOC: LABWHC1 08:53 | PROVIDERS: ATTEND Emergency Medicine | DX: Z53.9 Procedure and treatment not carried out, unspecified reason (principal) ==

== ENCOUNTER 2020-08-31 18:47 | Emergency (ER) | payer OTHER ==
[2020-08-31 18:53] VITALS: BP 126/85; PULSE 98; RESP 18; TEMP 98.5
--- NOTE | 2020-08-31 19:30 | ED ---
General Adult HPI - General Chief complaint: ENT Stated complaint: Covid exposure, wants test Time Seen by Provider: 08/31/20 19:22 Source: patient, RN notes reviewed Mode of arrival: ambulatory Limitations: no limitations - History of Present Illness Initial comments: Patient is a 35-year-old female that reports emergency department with a 3 to four-day history of cough, sore throat and very mild dyspnea. She notes that she wants to get tested for Covid while at the ER. She denied any other complaints or issues. She was in no distress or pain while sitting in bed during exam and interview. She denied any chest pain headache nausea vomiting diarrhea constipation fever fatigue chills - Related Data Home Medications Medication Instructions Recorded Confirmed DULoxetine HCL [Cymbalta] 60 mg PO DAILY 12/07/17 04/11/18 HYDROcodone/APAP 5-325MG [[place] 1 tab PO Q6HR PRN 12/07/17 04/11/18 5-325] Previous Rx's Medication Instructions Recorded Cephalexin [Keflex] 500 mg PO Q6HR 10 Days cap 04/11/18 Famotidine [Pepcid] 20 mg PO BID #14 tablet 02/23/20 Allergies Allergy/AdvReac Type Severity Reaction Status Date / Time No Known Allergies Allergy Verified 08/31/20 18:54 Review of Systems ROS Statement: Those systems with pertinent positive or pertinent negative responses have been documented in the HPI. ROS Other: All systems not noted in ROS Statement are negative. Past Medical History Past Medical History: Fibromyalgia History of Any Multi-Drug Resistant Organisms: None Reported Past Surgical History: Tubal Ligation Past Psychological History: No Psychological Hx Reported Smoking Status: Never smoker Past Alcohol Use History: None Reported Past Drug Use History: None Reported General Exam Limitations: no limitations General appearance: alert, in no apparent distress Head exam: Present: atraumatic, normocephalic, normal inspection Eye exam: Present: normal appearance, PERRL, EOMI. Absent: scleral icterus, conjunctival injection, periorbital swelling ENT exam: Present: normal exam, mucous membranes moist Neck exam: Present: normal inspection. Absent: tenderness, meningismus, lymphadenopathy Respiratory exam: Present: normal lung sounds bilaterally. Absent: respiratory distress, wheezes, rales, rhonchi, stridor Cardiovascular Exam: Present: regular rate, normal rhythm, normal heart sounds. Absent: systolic murmur, diastolic murmur, rubs, gallop, clicks GI/Abdominal exam: Present: soft, normal bowel sounds. Absent: distended, tenderness, guarding, rebound, rigid Extremities exam: Present: normal inspection, full ROM, normal capillary refill. Absent: tenderness, pedal edema, joint swelling, calf tenderness Neurological exam: Present: alert, oriented X3, CN II-XII intact Psychiatric exam: Present: normal affect, normal mood Skin exam: Present: warm, dry, intact, normal color. Absent: rash Course Vital Signs 08/31/20 18:50 Temperature 98.5 F Pulse Rate 98 Respiratory 18 Rate Blood Pressure 126/85 O2 Sat by Pulse 98 Oximetry Medical Decision Making - Medical Decision Making 35-year-old female complaining of a 3 to four-day history of cough, sore throat, mild dyspnea. Chest x-ray, Covid PCR test ordered Vital signs stable, oxygen saturation 98 on room air Patient will be called with any positive results. Case discussed with Dr. Jarrett, patient discharged home with symptomatically management. - Radiology Data Radiology results: report reviewed, image reviewed Chest x-ray: Normal chest. No change Disposition Clinical Impression: Cough, Acute viral pharyngitis, Exposure to COVID-19 virus Disposition: HOME SELF-CARE Instructions (If sedation given, give patient instructions): Pharyngitis (ED), Coronavirus Disease 2019 (COVID-19) Additional Instructions: Please return to the Emergency Department if symptoms worsen or any other concerns. We will call with any positive results on the swab. Follow CBC guidelines and quarantine for 10-14 days, symptomatically management with rest fluids and anti-inflammatories as needed for aches and pains. Follow-up with primary care soon as possible. Is patient prescribed a controlled substance at d/c from ED?: No Referrals: Nasim Resendiz MD [Primary Care Provider] - 1-2 days Time of Disposition: 20:43
--- NOTE | 2020-08-31 20:16 | XR ---
EXAMINATION TYPE: XR chest 1V portable DATE OF EXAM: 08/31/2020 COMPARISON: 10/08/2017 HISTORY: Cough and sore throat TECHNIQUE: Single view FINDINGS: Heart and mediastinum are normal. Lungs are clear. Diaphragm is normal. Bony thorax is inta ct. IMPRESSION: Normal chest. No change.
== END 2020-08-31 21:01 | disposition home or self-care (01) ==
LOC: EC 18:47
DX: J02.9 Acute pharyngitis, unspecified (principal); Z20.822 Contact with and (suspected) exposure to COVID-19; M79.7 Fibromyalgia; Z98.51 Tubal ligation status
CPT/HCPCS: 71045; 99284; U0003; U0005

== ENCOUNTER 2020-09-02 20:53 | Emergency (ER) | payer OTHER ==
[2020-09-02 21:08] VITALS: RESP 18; TEMP 98.1
--- NOTE | 2020-09-02 22:40 | XR ---
EXAMINATION TYPE: XR chest 2V DATE OF EXAM: 09/02/2020 COMPARISON: 08/31/2020 HISTORY: Chest pain TECHNIQUE: FINDINGS: Heart and mediastinum are normal. Lungs are clear. Diaphragm is normal. Bony thorax appears normal. IMPRESSION: Normal chest. No change.
[2020-09-02] MEDS ORDERED: ACETAMINOPHEN TAB 500 MG TAB PO STA (23:25)
[2020-09-02] MEDS ORDERED: KETOROLAC 15 MG/ML 1 ML VIAL IVP STA (23:25)
[2020-09-02] MEDS ORDERED: SODIUM CHLORIDE 0.9% 1,000 ML IV STA ×2 (23:25)
[2020-09-02] MEDS ORDERED: ALBUTEROL HFA INHALER INHALATION STA (23:25)
--- NOTE | 2020-09-02 23:26 | ED ---
Recheck HPI - General Chief Complaint: Chest Pain Stated Complaint: Chest Pain Time Seen by Provider: 09/02/20 23:04 Source: patient, RN notes reviewed, old records reviewed Mode of arrival: ambulatory Limitations: no limitations - History of Present Illness Initial Comments: This is a 35-year-old female DF for evaluation. Patient has no real significant medical history does have a known positive diagnosis coronavirus. She does admit to some mild chest tightness. Otherwise no recent travel history no recent significant sick contacts. Shortness of breath and is also states that she does feel like she is improving. No recent significant physical activity or changes. She is concerned that the coronavirus maybe getting worse. Diagnosis MD Complaint: abnormal lab (Known coronavirus) -: days(s) Returns Today for: Called Because of Abnormal Lab/Test, persistent/worsening pain related to initial visit Symptoms Since Prior Visit: worsening pain, fever Associated Symptoms: fever, chills, shortness of breath, malaise Treatments Prior to Arrival: Given Antibiotics on, Given Pain Meds on - Related Data Home Medications Medication Instructions Recorded Confirmed DULoxetine HCL [Cymbalta] 60 mg PO DAILY 12/07/17 04/11/18 HYDROcodone/APAP 5-325MG [[place] 1 tab PO Q6HR PRN 12/07/17 04/11/18 5-325] Previous Rx's Medication Instructions Recorded Cephalexin [Keflex] 500 mg PO Q6HR 10 Days cap 04/11/18 Famotidine [Pepcid] 20 mg PO BID #14 tablet 02/23/20 Allergies Allergy/AdvReac Type Severity Reaction Status Date / Time No Known Allergies Allergy Verified 09/02/20 21:08 Review of Systems ROS Statement: Those systems with pertinent positive or pertinent negative responses have been documented in the HPI. ROS Other: All systems not noted in ROS Statement are negative. Past Medical History Past Medical History: Fibromyalgia Additional Past Medical History / Comment(s): covid, History of Any Multi-Drug Resistant Organisms: None Reported Past Surgical History: Tubal Ligation Past Psychological History: No Psychological Hx Reported Smoking Status: Never smoker Past Alcohol Use History: None Reported Past Drug Use History: None Reported General Exam Limitations: no limitations General appearance: alert, in no apparent distress Head exam: Present: atraumatic, normocephalic, normal inspection Eye exam: Present: normal appearance, PERRL, EOMI. Absent: scleral icterus, conjunctival injection, periorbital swelling ENT exam: Present: normal exam, mucous membranes moist Neck exam: Present: normal inspection. Absent: tenderness, meningismus, lymphadenopathy Respiratory exam: Present: normal lung sounds bilaterally. Absent: respiratory distress, wheezes, rales, rhonchi, stridor Cardiovascular Exam: Present: normal rhythm, tachycardia, normal heart sounds. Absent: systolic murmur, diastolic murmur, rubs, gallop, clicks GI/Abdominal exam: Present: soft, normal bowel sounds. Absent: distended, tenderness, guarding, rebound, rigid Extremities exam: Present: normal inspection, full ROM, normal capillary refill. Absent: tenderness, pedal edema, joint swelling, calf tenderness Back exam: Present: normal inspection Neurological exam: Present: alert, oriented X3, CN II-XII intact Psychiatric exam: Present: normal affect, normal mood Skin exam: Present: warm, dry, intact, normal color. Absent: rash Course Vital Signs 09/02/20 09/03/20 21:05 01:37 Temperature 98.1 F Pulse Rate 105 H 98 Respiratory 18 18 Rate Blood Pressure 119/80 110/79 O2 Sat by Pulse 100 98 Oximetry - Reevaluation(s) Reevaluation #1: Medical record is reviewed Patient symptoms improved here in the ER Patient family informed of results, questions have been answered Medical Decision Making - Medical Decision Making 35 female for reevaluation of coronavirus infection. Patient is in no acute distress here in the emergency department, actually feeling improved. Carriage home - Lab Data Result diagrams: 09/03/20 00:00 09/03/20 00:00 Lab Results 09/03/20 09/03/20 Range/Units 00:00 00:00 WBC 6.9 (3.8-10.6) k/uL RBC 5.39 (3.80-5.40) m/uL Hgb 14.7 (11.4-16.0) gm/dL Hct 46.6 H (34.0-46.0) % MCV 86.6 (80.0-100.0) fL MCH 27.3 (25.0-35.0) pg MCHC 31.6 (31.0-37.0) g/dL RDW 13.7 (11.5-15.5) % Plt Count 231 (150-450) k/uL MPV 8.0 Neutrophils % 52 % Lymphocytes % 35 % Monocytes % 8 % Eosinophils % 2 % Basophils % 1 % Neutrophils # 3.6 (1.3-7.7) k/uL Lymphocytes # 2.4 (1.0-4.8) k/uL Monocytes # 0.6 (0-1.0) k/uL Eosinophils # 0.1 (0-0.7) k/uL Basophils # 0.1 (0-0.2) k/uL Sodium 138 (137-145) mmol/L Potassium 4.1 (3.5-5.1) mmol/L Chloride 106 (98-107) mmol/L Carbon Dioxide 23 (22-30) mmol/L Anion Gap 9 mmol/L BUN 12 (7-17) mg/dL Creatinine 0.86 (0.52-1.04) mg/dL Est GFR (CKD-EPI)AfAm >90 (>60 ml/min/1.73 sqM) Est GFR (CKD-EPI)NonAf 90 (>60 ml/min/1.73 sqM) Glucose 89 (74-99) mg/dL Calcium 9.6 (8.4-10.2) mg/dL Magnesium 1.8 (1.6-2.3) mg/dL Total Bilirubin 0.3 (0.2-1.3) mg/dL AST 23 (14-36) U/L ALT 21 (4-34) U/L Alkaline Phosphatase 110 (38-126) U/L Lactate Dehydrogenase 491 (313-618) U/L C-Reactive Protein 5.2 (<10.0) mg/L Total Protein 8.0 (6.3-8.2) g/dL Albumin 4.6 (3.5-5.0) g/dL - EKG Data -: EKG Interpreted by Me (EKG shows sinus tachycardia 106 WV 144 QRS 86 QTc 435) - Radiology Data Radiology results: report reviewed (Chest x-rays negative for acute disease), image reviewed Disposition Clinical Impression: Coronavirus infection, Exposure to COVID-19 virus Disposition: HOME SELF-CARE Condition: Good Instructions (If sedation given, give patient instructions): Coronavirus Disease 2019 (COVID-19) Is patient prescribed a controlled substance at d/c from ED?: No Referrals: Nasim Resendiz MD [Primary Care Provider] - 1-2 days
[2020-09-03 00:38] LABS: Basophils # (A) 0.1 k/uL (0-0.2); Basophils % (A) 1 %; Eosinophils # (A) 0.1 k/uL (0-0.7); Eosinophils % (A) 2 %; HCT 46.6 % (34.0-46.0); HGB 14.7 gm/dL (11.4-16.0); Lymphocytes # (A) 2.4 k/uL (1.0-4.8); Lymphocytes % (A) 35 %; MCH 27.3 pg (25.0-35.0); MCHC 31.6 g/dL (31.0-37.0); MCV 86.6 fL (80.0-100.0); Monocytes # (A) 0.6 k/uL (0-1.0); Monocytes % (A) 8 %; Neutrophils # (A) 3.6 k/uL (1.3-7.7); Neutrophils % (A) 52 %; Platelet Count 231 k/uL (150-450); RBC 5.39 m/uL (3.80-5.40); RDW 13.7 % (11.5-15.5); WBC 6.9 k/uL (3.8-10.6)
[2020-09-03 00:48] LABS: ALT 21 U/L (4-34); AST 23 U/L (14-36); African American GFR (CKD) >90 (>60 ml/min/1.73 sqM); Albumin 4.6 g/dL (3.5-5.0); Alkaline Phosphatase 110 U/L (38-126); Anion Gap 9 mmol/L; Blood Urea Nitrogen 12 mg/dL (7-17); C Reactive Protein 5.2 mg/L (<10.0); Calcium 9.6 mg/dL (8.4-10.2); Carbon Dioxide 23 mmol/L (22-30); Chloride 106 mmol/L (98-107); Glucose 89 mg/dL (74-99); LDH 491 U/L (313-618); Magnesium 1.8 mg/dL (1.6-2.3); Non-African American GFR(CKD) 90 (>60 ml/min/1.73 sqM); Potassium 4.1 mmol/L (3.5-5.1); Sodium 138 mmol/L (137-145); Total Bilirubin 0.3 mg/dL (0.2-1.3)
[2020-09-03] MEDS ORDERED: HYDROmorphone 1 MG/ML 1 ML SYRINGE IVP STA (00:59)
[2020-09-03 01:38] VITALS: BP 110/79; PULSE 98
== END 2020-09-03 01:36 | disposition home or self-care (01) ==
LOC: EC 20:53
DX: U07.1 COVID-19 (principal); M79.7 Fibromyalgia; Z79.899 Other long term (current) drug therapy
CPT/HCPCS: 36415; 94640; 93005; 80053; 83615; 83735; 85025; 86140; 87040; 71046; 99285; 96374; 96361; J1885

== ENCOUNTER 2020-12-24 15:47 | Emergency (ER) | payer OTHER ==
[2020-12-24 16:02] VITALS: RESP 16; TEMP 98.1
[2020-12-24] MEDS ORDERED: ASPIRIN 81 MG PO STA (16:41)
[2020-12-24] MEDS ORDERED: SODIUM CHLORIDE 0.9% 1,000 ML IV STA (16:41)
[2020-12-24] MEDS ORDERED: FAMOTIDINE 20 MG/2 ML VIAL IV STA (16:42)
--- NOTE | 2020-12-24 16:46 | ED ---
General Adult HPI - General Chief complaint: Chest Pain Stated complaint: Chest pain Source: patient, RN notes reviewed, old records reviewed Mode of arrival: ambulatory Limitations: no limitations - History of Present Illness Initial comments: 34-year-old white female, alert and oriented 4 and well-appearing, presents to the emergency room with complaints of chest pain for one week. Patient describes the pain as burning to the left chest. She states it is worse with spicy foods. She states that she has had pain like this in the past but was not cardiac. Patient has history of fibromyalgia but is not on medications. She does not take any medication on a daily basis. She is a nonsmoker, her father did at age 67 of a heart attack no other family history of cardiac disease. Patient denies risk of . She states that she did try taking Motrin and Lysite with no relief. She states that she did try an aspirin also last night no relief. She denies any cough, fever, nausea vomiting or diarrhea. -: week(s) (1) Location: chest, left Radiation: non-radiation Severity scale (1-10): 5 Quality: burning Consistency: constant Improves with: none Worsens with: eating Associated Symptoms: headaches (Motrin Lysite and aspirin all without relief but nothing today) - Related Data Previous Rx's Medication Instructions Recorded Famotidine [Pepcid] 20 mg PO DAILY 28 Days #28 tablet 12/24/20 Allergies Allergy/AdvReac Type Severity Reaction Status Date / Time No Known Allergies Allergy Verified 12/24/20 17:26 Review of Systems ROS Statement: Those systems with pertinent positive or pertinent negative responses have been documented in the HPI. ROS Other: All systems not noted in ROS Statement are negative. Past Medical History Past Medical History: Fibromyalgia Additional Past Medical History / Comment(s): covid, History of Any Multi-Drug Resistant Organisms: None Reported Past Surgical History: Tubal Ligation Past Psychological History: No Psychological Hx Reported Smoking Status: Never smoker Past Alcohol Use History: None Reported Past Drug Use History: None Reported General Exam Limitations: no limitations General appearance: alert, in no apparent distress Head exam: Present: atraumatic, normocephalic, normal inspection Eye exam: Present: normal appearance, PERRL, EOMI. Absent: scleral icterus, conjunctival injection, nystagmus, periorbital swelling, periorbital tenderness Pupils: Present: normal accommodation ENT exam: Present: normal exam, normal oropharynx, mucous membranes moist, other (Tongue piercing) Neck exam: Present: normal inspection, full ROM. Absent: tenderness, meningismus, lymphadenopathy, thyromegaly Respiratory exam: Present: normal lung sounds bilaterally. Absent: respiratory distress, wheezes, rales, rhonchi, stridor, chest wall tenderness, accessory muscle use, decreased breath sounds, prolonged expiratory Cardiovascular Exam: Present: regular rate, normal rhythm, normal heart sounds. Absent: systolic murmur, diastolic murmur, rubs, gallop, clicks GI/Abdominal exam: Present: soft, normal bowel sounds. Absent: distended, tenderness, guarding, rebound, rigid Extremities exam: Present: normal inspection, full ROM, normal capillary refill. Absent: tenderness, pedal edema, joint swelling, calf tenderness Back exam: Present: normal inspection, full ROM. Absent: tenderness, CVA tenderness (R), CVA tenderness (L), muscle spasm, paraspinal tenderness, vertebral tenderness, rash noted Neurological exam: Present: alert, oriented X3, CN II-XII intact Psychiatric exam: Present: normal affect, normal mood Skin exam: Present: warm, dry, intact, normal color. Absent: rash, cyanosis, diaphoretic, erythema, urticaria, petechiae, pallor, mottled, abrasion Course Vital Signs 12/24/20 12/24/20 16:00 18:43 Temperature 98.1 F Pulse Rate 80 86 Respiratory 16 16 Rate Blood Pressure 124/88 126/83 O2 Sat by Pulse 100 100 Oximetry - Reevaluation(s) Reevaluation #1: 12/24/20 19:00 Patient resting comfortably in the room still awaiting lab results. Time: 19:00 EKG Findings - EKG Results: EKG: sinus rhythm (Ventricular rate of 73, GA interval 0.144, QRS of 0.8, QTc 0.431; normal sinus rhythm) Medical Decision Making - Medical Decision Making UA shows large blood with negative leukocyte esterase, 3 WBCs negative nitrites, patient is in her menses now. She denies use of the control pills. No recent trauma. No shortness of breath. WBC count is 9.4, hemoglobin and hematocrit is 14 and 44 respectively, potassium is 4.2 and troponin is negative at 0.012 magnesium was 1.8. Heart rate of 86 and regular, oxygen saturation 100%, blood pressure is 126/83, respiratory rate of 16. EKG shows a ventricular rate of 73, GA interval of 0.144, QRS of 0.88, QTc of 0.431. No acute changes from August 2020. Chest x-ray shows no acute cardiopulmonary process no pneumothorax and no pleural effusion. Patient was seen in August of this year for similar pain and states did get relief with GI cocktail at that time. She states she did get some relief with Pepcid , GI cocktail and IV fluids today also. Patient will be written a prescription for Pepcid to be taken once a day, return to the emergency room with worsening symptoms or shortness of breath, and follow up with the primary care doctor. Case discussed with Dr Tijerina who is agreeable to this plan of care. - Lab Data Result diagrams: 12/24/20 18:42 12/24/20 18:42 Lab Results 12/24/20 12/24/20 12/24/20 Range/Units 16:50 18:42 18:42 WBC 9.4 (3.8-10.6) k/uL RBC 5.06 (3.80-5.40) m/uL Hgb 14.5 (11.4-16.0) gm/dL Hct 44.0 (34.0-46.0) % MCV 87.0 (80.0-100.0) fL MCH 28.6 (25.0-35.0) pg MCHC 32.9 (31.0-37.0) g/dL RDW 13.2 (11.5-15.5) % Plt Count 231 (150-450) k/uL MPV 7.7 Neutrophils % 65 % Lymphocytes % 26 % Monocytes % 3 % Eosinophils % 4 % Basophils % 1 % Neutrophils # 6.2 (1.3-7.7) k/uL Lymphocytes # 2.4 (1.0-4.8) k/uL Monocytes # 0.3 (0-1.0) k/uL Eosinophils # 0.4 (0-0.7) k/uL Basophils # 0.1 (0-0.2) k/uL PT 10.4 (9.0-12.0) sec INR 1.0 (<1.2) APTT 26.3 (22.0-30.0) sec Sodium (137-145) mmol/L Potassium (3.5-5.1) mmol/L Chloride (98-107) mmol/L Carbon Dioxide (22-30) mmol/L Anion Gap mmol/L BUN (7-17) mg/dL Creatinine (0.52-1.04) mg/dL Est GFR (CKD-EPI)AfAm (>60 ml/min/1.73 sqM) Est GFR (CKD-EPI)NonAf (>60 ml/min/1.73 sqM) Glucose (74-99) mg/dL Calcium (8.4-10.2) mg/dL Magnesium (1.6-2.3) mg/dL Total Bilirubin (0.2-1.3) mg/dL AST (14-36) U/L ALT (4-34) U/L Alkaline Phosphatase (38-126) U/L Troponin I (0.000-0.034) ng/mL Total Protein (6.3-8.2) g/dL Albumin (3.5-5.0) g/dL Amylase (30-110) U/L Lipase (23-300) U/L Urine Color Yellow Urine Appearance Clear (Clear) Urine pH 6.0 (5.0-8.0) Ur Specific [place] 1.024 (1.001-1.035) Urine Protein Negative (Negative) Urine Glucose (UA) Negative (Negative) Urine Ketones Negative (Negative) Urine Blood Large H (Negative) Urine Nitrite Negative (Negative) Urine Bilirubin Negative (Negative) Urine Urobilinogen <2.0 (<2.0) mg/dL Ur Leukocyte Esterase Negative (Negative) Urine RBC >182 H (0-5) /hpf Urine WBC 3 (0-5) /hpf Ur Squamous Epith Cells 2 (0-4) /hpf Urine Mucus Rare H (None) /hpf 12/24/20 12/24/20 Range/Units 18:42 18:42 WBC (3.8-10.6) k/uL RBC (3.80-5.40) m/uL Hgb (11.4-16.0) gm/dL Hct (34.0-46.0) % MCV (80.0-100.0) fL MCH (25.0-35.0) pg MCHC (31.0-37.0) g/dL RDW (11.5-15.5) % Plt Count (150-450) k/uL MPV Neutrophils % % Lymphocytes % % Monocytes % % Eosinophils % % Basophils % % Neutrophils # (1.3-7.7) k/uL Lymphocytes # (1.0-4.8) k/uL Monocytes # (0-1.0) k/uL Eosinophils # (0-0.7) k/uL Basophils # (0-0.2) k/uL PT (9.0-12.0) sec INR (<1.2) APTT (22.0-30.0) sec Sodium 141 (137-145) mmol/L Potassium 4.2 (3.5-5.1) mmol/L Chloride 112 H (98-107) mmol/L Carbon Dioxide 17 L (22-30) mmol/L Anion Gap 12 mmol/L BUN 9 (7-17) mg/dL Creatinine 0.66 (0.52-1.04) mg/dL Est GFR (CKD-EPI)AfAm >90 (>60 ml/min/1.73 sqM) Est GFR (CKD-EPI)NonAf >90 (>60 ml/min/1.73 sqM) Glucose 77 (74-99) mg/dL Calcium 9.4 (8.4-10.2) mg/dL Magnesium 1.8 (1.6-2.3) mg/dL Total Bilirubin 0.4 (0.2-1.3) mg/dL AST 29 (14-36) U/L ALT 20 (4-34) U/L Alkaline Phosphatase 101 (38-126) U/L Troponin I <0.012 (0.000-0.034) ng/mL Total Protein 7.6 (6.3-8.2) g/dL Albumin 4.4 (3.5-5.0) g/dL Amylase 59 (30-110) U/L Lipase 66 (23-300) U/L Urine Color Urine Appearance (Clear) Urine pH (5.0-8.0) Ur Specific [place] (1.001-1.035) Urine Protein (Negative) Urine Glucose (UA) (Negative) Urine Ketones (Negative) Urine Blood (Negative) Urine Nitrite (Negative) Urine Bilirubin (Negative) Urine Urobilinogen (<2.0) mg/dL Ur Leukocyte Esterase (Negative) Urine RBC (0-5) /hpf Urine WBC (0-5) /hpf Ur Squamous Epith Cells (0-4) /hpf Urine Mucus (None) /hpf Disposition Clinical Impression: Chest pain Disposition: HOME SELF-CARE Condition: Fair Instructions (If sedation given, give patient instructions): Chest Pain (ED) Additional Instructions: Follow-up with the primary care doctor in 1 week. Return to the emergency room with increasing pain or shortness of breath. Take Pepcid once a day as prescribed. Prescriptions: Famotidine [Pepcid] 20 mg PO DAILY 28 Days #28 tablet Is patient prescribed a controlled substance at d/c from ED?: No Referrals: Nasim Resendiz MD [Primary Care Provider] - 1-2 days Time of Disposition: 19:28
[2020-12-24 17:34] LABS: Appearance,Urine Clear (Clear); Bilirubin,Urine Negative (Negative); Blood,Urine Large (Negative); Color,Urine Yellow; Glucose,Urine (UA) Negative (Negative); Ketones,Urine Negative (Negative); Leukocyte Esterase,Urine Negative (Negative); Mucus,Urine Rare /hpf; Nitrite,Urine Negative (Negative); Protein,Urine Negative (Negative); RBC,Urine >182 /hpf (0-5); Specific Gravity,Urine 1.024 (1.001-1.035); Squamous Epithelial Cell,Urine 2 /hpf (0-4); Urobilinogen,Urine <2.0 mg/dL (<2.0); WBC,Urine 3 /hpf (0-5)
[2020-12-24 18:44] VITALS: BP 126/83; PULSE 86
--- NOTE | 2020-12-24 18:55 | XR ---
EXAMINATION TYPE: XR chest 2V DATE OF EXAM: 12/24/2020 COMPARISON: Chest x-ray September 02, 2020. HISTORY: Chest pain. TECHNIQUE: Frontal and lateral views of the chest are obtained. FINDINGS: There is no suspicious new focal air space opacity, pleural effusion, or pneumothorax seen . The cardiac silhouette size remains within normal limits. The osseous structures are intact. IMPRESSION: No acute cardiopulmonary process. No significant change from prior.
[2020-12-24 19:05] LABS: Basophils # (A) 0.1 k/uL (0-0.2); Basophils % (A) 1 %; Eosinophils # (A) 0.4 k/uL (0-0.7); Eosinophils % (A) 4 %; HGB 14.5 gm/dL (11.4-16.0); Lymphocytes # (A) 2.4 k/uL (1.0-4.8); Lymphocytes % (A) 26 %; MCH 28.6 pg (25.0-35.0); MCHC 32.9 g/dL (31.0-37.0); Mean Platelet Volume 7.7; Monocytes # (A) 0.3 k/uL (0-1.0); Monocytes % (A) 3 %; Neutrophils # (A) 6.2 k/uL (1.3-7.7); Neutrophils % (A) 65 %; Platelet Count 231 k/uL (150-450); RBC 5.06 m/uL (3.80-5.40); RDW 13.2 % (11.5-15.5); WBC 9.4 k/uL (3.8-10.6)
[2020-12-24] MEDS ORDERED: MAG HYDROX/AL HYDROX/SIMETH 30 ML, HYOSCYAMINE ELIXIR 10 ML, LIDOCAINE VISCOUS 2% 10 ML PO STA ×3 (19:09)
[2020-12-24] MEDS ORDERED: MAG HYDROX/AL HYDROX/SIMETH 30 ML CUP PO PRN (19:09)
[2020-12-24 19:13] LABS: ALT 20 U/L (4-34); AST 29 U/L (14-36); African American GFR (CKD) >90 (>60 ml/min/1.73 sqM); Albumin 4.4 g/dL (3.5-5.0); Alkaline Phosphatase 101 U/L (38-126); Amylase 59 U/L (30-110); Anion Gap 12 mmol/L; Blood Urea Nitrogen 9 mg/dL (7-17); Calcium 9.4 mg/dL (8.4-10.2); Carbon Dioxide 17 mmol/L (22-30); Chloride 112 mmol/L (98-107); Glucose 77 mg/dL (74-99); Lipase 66 U/L (23-300); Magnesium 1.8 mg/dL (1.6-2.3); Non-African American GFR(CKD) >90 (>60 ml/min/1.73 sqM); Sodium 141 mmol/L (137-145); Total Bilirubin 0.4 mg/dL (0.2-1.3); Total Protein 7.6 g/dL (6.3-8.2)
[2020-12-24 19:15] LABS: Partial Thromboplastin Time 26.3 sec (22.0-30.0); Prothrombin Time 10.4 sec (9.0-12.0)
[2020-12-24 19:17] LABS: Potassium 4.2 mmol/L (3.5-5.1)
== END 2020-12-24 19:55 | disposition home or self-care (01) ==
LOC: EC 15:47
DX: R07.89 Other chest pain (principal)
CPT/HCPCS: 36415; 71046; 80053; 81001; 82150; 83690; 83735; 84484; 85025; 85610; 85730; 93005; 96361; 96374; 99285

== ENCOUNTER 2021-02-24 09:39 | Emergency (ER) | payer OTHER ==
[2021-02-24 09:42] VITALS: BP 131/84; PULSE 79; RESP 19; TEMP 97.7
[2021-02-24] MEDS ORDERED: dexAMETHasone 4 MG TAB PO STA (09:59)
--- NOTE | 2021-02-24 10:00 | ED ---
General Adult HPI - General Chief complaint: ENT Stated complaint: Sore throat Time Seen by Provider: 02/24/21 09:42 Source: patient, RN notes reviewed Mode of arrival: ambulatory Limitations: no limitations - History of Present Illness Initial comments: Patient is a pleasant 35-year-old female presenting to the emergency Department with complaints of left-sided anterior neck discomfort. Onset of symptoms was close to week ago. Symptoms have slowly progressively worsened since that time. It does hurt to swallow. No fevers. Minimal cough. Patient is tolerating oral intake. No dyspnea. No history of similar symptoms previously. - Related Data Previous Rx's Medication Instructions Recorded Famotidine [Pepcid] 20 mg PO DAILY 28 Days #28 tablet 12/24/20 Amoxicillin/Potassium Clav 1 tab PO Q12HR 1 Days #14 tab 02/24/21 [Augmentin 875-125 Tablet] Allergies Allergy/AdvReac Type Severity Reaction Status Date / Time No Known Allergies Allergy Verified 02/24/21 09:40 Review of Systems ROS Statement: Those systems with pertinent positive or pertinent negative responses have been documented in the HPI. ROS Other: All systems not noted in ROS Statement are negative. Constitutional: Denies: fever Eyes: Denies: eye pain ENT: Reports: as per HPI Respiratory: Reports: as per HPI Cardiovascular: Denies: chest pain Endocrine: Denies: fatigue Gastrointestinal: Denies: abdominal pain Genitourinary: Denies: dysuria Musculoskeletal: Denies: back pain Skin: Denies: rash Neurological: Denies: weakness Past Medical History Past Medical History: Fibromyalgia Additional Past Medical History / Comment(s): covid, History of Any Multi-Drug Resistant Organisms: None Reported Past Surgical History: Tubal Ligation Past Psychological History: No Psychological Hx Reported Smoking Status: Never smoker Past Alcohol Use History: None Reported Past Drug Use History: None Reported General Exam Limitations: no limitations General appearance: alert, in no apparent distress Head exam: Present: normocephalic Eye exam: Present: normal appearance ENT exam: Present: normal oropharynx, TM's normal bilaterally, other (No maxillary or frontal sinus tenderness) Neck exam: Present: lymphadenopathy (Left superior anterior cervical lymphadenopathy with tenderness. No erythema.) Respiratory exam: Present: normal lung sounds bilaterally Cardiovascular Exam: Present: regular rate, normal rhythm Neurological exam: Present: alert Psychiatric exam: Present: normal affect, normal mood Skin exam: Present: normal color Course Vital Signs 02/24/21 09:40 Temperature 97.7 F Pulse Rate 79 Respiratory 19 Rate Blood Pressure 131/84 O2 Sat by Pulse 100 Oximetry Disposition Clinical Impression: Lymphadenopathy Disposition: HOME SELF-CARE Condition: Stable Instructions (If sedation given, give patient instructions): Lymphadenopathy (ED) Additional Instructions: Prescription sent to pharmacy. Continue [id number] Motrin. Return for increase pain or swelling, difficulty breathing, not tolerating oral intake, worsening symptoms or any other concerns. Please follow-up with primary care physician in the next one to 2 days for recheck. Prescriptions: Amoxicillin/Potassium Clav [Augmentin 875-125 Tablet] 1 tab PO Q12HR 1 Days #14 tab Is patient prescribed a controlled substance at d/c from ED?: No Referrals: Nasim Resendiz MD [Primary Care Provider] - 1-2 days Time of Disposition: 09:59
== END 2021-02-24 10:29 | disposition home or self-care (01) ==
LOC: EC 09:39
DX: R59.1 Generalized enlarged lymph nodes (principal); Z87.39 Personal history of other diseases of the musculoskeletal system and connective tissue
CPT/HCPCS: 99283; J8540

== ENCOUNTER 2021-04-23 09:17 | Emergency (ER) | payer OTHER ==
--- NOTE | 2021-04-23 10:45 | CT ---
EXAMINATION TYPE: CT soft tissue neck w con DATE OF EXAM: 04/23/2021 10:29 AM COMPARISON: None HISTORY: Left sided neck pain and swelling. CT DLP: 367.1 mGycm Automated exposure control for dose reduction was used. CONTRAST: CT scan of the neck is performed following with IV Contrast, patient injected with 100 mL of Isovue 3 00. Axial images are obtained, coronal and sagittal reformatted images are reviewed. FINDINGS: Lung apices are clear. Thyroid normal. Osseous structures appear intact. Nasopharynx oropharynx symmetric. Base of the tongue is symmetric. Submandibular glands and parotid g lands have a normal appearance. Shotty adenopathy seen throughout the compartments of the soft tissue the neck. Vasculature enhances normally. Intracranial structures and orbits are symmetric. IMPRESSION: 1. Shotty adenopathy in the soft tissue the neck largest lymph node measuring approximately 8 mm in s hort axis.
[2021-04-23 10:55] LABS: African American GFR (CKD) >90 (>60 ml/min/1.73 sqM); Anion Gap 9 mmol/L; Blood Urea Nitrogen 12 mg/dL (7-17); Calcium 9.9 mg/dL (8.4-10.2); Carbon Dioxide 24 mmol/L (22-30); Chloride 106 mmol/L (98-107); Glucose 83 mg/dL (74-99); Non-African American GFR(CKD) >90 (>60 ml/min/1.73 sqM); Potassium 4.3 mmol/L (3.5-5.1); Sodium 139 mmol/L (137-145)
[2021-04-23 11:06] LABS: Basophils # (A) 0.1 k/uL (0-0.2); Basophils % (A) 1 %; Eosinophils # (A) 0.2 k/uL (0-0.7); Eosinophils % (A) 3 %; HGB 15.3 gm/dL (11.4-16.0); Lymphocytes # (A) 2.4 k/uL (1.0-4.8); Lymphocytes % (A) 29 %; MCH 29.7 pg (25.0-35.0); MCHC 33.9 g/dL (31.0-37.0); MCV 87.5 fL (80.0-100.0); Mean Platelet Volume 8.1; Monocytes # (A) 0.4 k/uL (0-1.0); Monocytes % (A) 5 %; Neutrophils % (A) 61 %; Platelet Count 218 k/uL (150-450); RBC 5.14 m/uL (3.80-5.40); RDW 14.1 % (11.5-15.5); WBC 8.3 k/uL (3.8-10.6)
[2021-04-23] MEDS ORDERED: cefTRIAXone IN SWFI 1,000 MG/10 ML SYRINGE IVP STA (11:35)
[2021-04-23] MEDS ORDERED: DEXAMETHASONE SOD PHOSPHATE 10 MG/ML 1 ML VIAL IVP STA (11:35)
--- NOTE | 2021-04-23 11:38 | ED ---
Neck Injury/Pain HPI - General Chief Complaint: Neck Pain/Injury Stated Complaint: Neck pain Time Seen by Provider: 04/23/21 09:24 Source: patient, RN notes reviewed Mode of arrival: ambulatory Limitations: no limitations - History of Present Illness Initial Comments: This a 36-year-old female presents emergency Department chief complaint of swelling in her neck. She states that she's been having on and off issues. Patient states that she told there was a mass in her throat and that it seems to be getting worse. She states she has a sore throat no fevers chills no difficulty breathing. Patient denies any other complaints. - Related Data Previous Rx's Medication Instructions Recorded Amoxicillin/Potassium Clav 1 tab PO Q12HR #20 tab 04/23/21 [Augmentin 875-125 Tablet] Allergies Allergy/AdvReac Type Severity Reaction Status Date / Time No Known Allergies Allergy Verified 04/23/21 11:11 Review of Systems ROS Statement: Those systems with pertinent positive or pertinent negative responses have been documented in the HPI. ROS Other: All systems not noted in ROS Statement are negative. Past Medical History Past Medical History: Fibromyalgia Additional Past Medical History / Comment(s): covid, History of Any Multi-Drug Resistant Organisms: None Reported Past Surgical History: Tubal Ligation Past Psychological History: No Psychological Hx Reported Smoking Status: Never smoker Past Alcohol Use History: None Reported Past Drug Use History: None Reported General Exam Limitations: no limitations Course Vital Signs 04/23/21 09:19 Temperature 98 F Pulse Rate 76 Respiratory 18 Rate Blood Pressure 119/62 O2 Sat by Pulse 100 Oximetry Medical Decision Making - Medical Decision Making CT shows evidence of enlarged lymph nodes airway is patent, no other abnormalities seen on CT - Lab Data Result diagrams: 04/23/21 10:00 04/23/21 10:00 Lab Results 04/23/21 04/23/21 Range/Units 10:00 10:00 WBC 8.3 (3.8-10.6) k/uL RBC 5.14 (3.80-5.40) m/uL Hgb 15.3 (11.4-16.0) gm/dL Hct 45.0 (34.0-46.0) % MCV 87.5 (80.0-100.0) fL MCH 29.7 (25.0-35.0) pg MCHC 33.9 (31.0-37.0) g/dL RDW 14.1 (11.5-15.5) % Plt Count 218 (150-450) k/uL MPV 8.1 Neutrophils % 61 % Lymphocytes % 29 % Monocytes % 5 % Eosinophils % 3 % Basophils % 1 % Neutrophils # 5.0 (1.3-7.7) k/uL Lymphocytes # 2.4 (1.0-4.8) k/uL Monocytes # 0.4 (0-1.0) k/uL Eosinophils # 0.2 (0-0.7) k/uL Basophils # 0.1 (0-0.2) k/uL Sodium 139 (137-145) mmol/L Potassium 4.3 (3.5-5.1) mmol/L Chloride 106 (98-107) mmol/L Carbon Dioxide 24 (22-30) mmol/L Anion Gap 9 mmol/L BUN 12 (7-17) mg/dL Creatinine 0.73 (0.52-1.04) mg/dL Est GFR (CKD-EPI)AfAm >90 (>60 ml/min/1.73 sqM) Est GFR (CKD-EPI)NonAf >90 (>60 ml/min/1.73 sqM) Glucose 83 (74-99) mg/dL Calcium 9.9 (8.4-10.2) mg/dL Disposition Clinical Impression: Cervical lymphadenopathy Disposition: HOME SELF-CARE Condition: Stable Instructions (If sedation given, give patient instructions): Lymphadenopathy (ED) Additional Instructions: Please return to the Emergency Department if symptoms worsen or any other concerns. Prescriptions: Amoxicillin/Potassium Clav [Augmentin 875-125 Tablet] 1 tab PO Q12HR #20 tab Is patient prescribed a controlled substance at d/c from ED?: No Referrals: Nasim Resendiz MD [Primary Care Provider] - 1-2 days Time of Disposition: 11:37
[2021-04-23 11:54] VITALS: BP 122/77; PULSE 79; RESP 16; TEMP 98
== END 2021-04-23 12:06 | disposition home or self-care (01) ==
LOC: EC 09:17
DX: R59.0 Localized enlarged lymph nodes (principal); M54.2 Cervicalgia
CPT/HCPCS: 36415; 80048; 85025; 70491; 99284; 96374; 96375; J1100; J0696; Q9967

== ENCOUNTER 2021-09-11 20:52 | Emergency (ER) | payer OTHER ==
[2021-09-11] MEDS ORDERED: predniSONE 50 MG TAB PO STA (21:32)
[2021-09-11] MEDS ORDERED: IPRATROPIUM-ALBUTEROL 3 ML NEB INHALATION STA (21:32)
--- NOTE | 2021-09-11 21:44 | ED ---
ENT HPI - General Chief complaint: ENT Stated complaint: Sore Throat, Chest Pain Time Seen by Provider: 09/11/21 21:24 Source: patient, family, RN notes reviewed Mode of arrival: ambulatory Limitations: no limitations - History of Present Illness Initial comments: This is a pleasant 36-year-old female who presents to emergency department compl aining of a cough which is actually going on for about 3 months. She states his cough is dry. Has been daily. Patient now complaining of a sore throat as well. She did have childhood asthma. She is a nonsmoker. Patient states she does have some chest discomfort only with the cough. No known fever. No body aches. No exposures. No new allergens. No headache, no fever or chills, no changes in vision or hearing, no sore throat or difficulty with speech, no neck pain, no chest pain orshortness of breath, no abdominal pain, no nausea or vomiting, no changes in urination or bowel movements, no numbness or tingling, no extremity pain, no skin rashes or lesions. Interestingly the patient states she developed a sore throat a few days ago but is relating this to the cough as well. - Related Data Previous Rx's Medication Instructions Recorded Amoxicillin/Potassium Clav 1 tab PO Q12HR #20 tab 04/23/21 [Augmentin 875-125 Tablet] Albuterol Inhaler [Ventolin Hfa 1 puff INHALATION Q4H PRN #8 gm 09/11/21 Inhaler] predniSONE 50 mg PO DAILY #5 tab 09/11/21 Allergies Allergy/AdvReac Type Severity Reaction Status Date / Time No Known Allergies Allergy Verified 09/11/21 20:59 Review of Systems ROS Statement: Those systems with pertinent positive or pertinent negative responses have been documented in the HPI. ROS Other: All systems not noted in ROS Statement are negative. Past Medical History Past Medical History: Fibromyalgia Additional Past Medical History / Comment(s): covid, History of Any Multi-Drug Resistant Organisms: None Reported Past Surgical History: Tubal Ligation Past Psychological History: No Psychological Hx Reported Smoking Status: Never smoker Past Alcohol Use History: None Reported Past Drug Use History: None Reported General Exam Limitations: no limitations General appearance: alert, in no apparent distress Head exam: Present: atraumatic, normocephalic, normal inspection Eye exam: Present: normal appearance, PERRL, EOMI. Absent: scleral icterus, conjunctival injection, periorbital swelling ENT exam: Present: normal exam, normal oropharynx, mucous membranes moist, TM's normal bilaterally, normal external ear exam. Absent: mucous membranes dry Expanded Ear exam: Present: normal external inspection Mouth exam: Present: normal external inspection. Absent: drooling, trismus, muffled voice, tongue normal, tongue elevation, laceration Teeth exam: Present: normal inspection Throat exam: normal inspection. negative: tonsillar erythema, tonsillomegaly, tonsillar exudate, R peritonsillar mass, L peritonsillar mass Neck exam: Present: normal inspection, full ROM. Absent: tenderness, meningismus, lymphadenopathy Respiratory exam: Present: wheezes, chest wall tenderness. Absent: respiratory distress, rales, rhonchi, stridor, accessory muscle use Cardiovascular Exam: Present: regular rate, normal rhythm, normal heart sounds. Absent: systolic murmur, diastolic murmur, rubs, gallop, clicks GI/Abdominal exam: Present: soft, normal bowel sounds. Absent: distended, tenderness, guarding, rebound, rigid Extremities exam: Present: normal inspection, full ROM, normal capillary refill. Absent: tenderness, pedal edema, joint swelling, calf tenderness Back exam: Present: normal inspection Neurological exam: Present: alert, oriented X3, CN II-XII intact Psychiatric exam: Present: normal affect, normal mood Skin exam: Present: warm, dry, intact, normal color. Absent: rash Course Vital Signs 09/11/21 09/11/21 09/11/21 20:55 21:30 21:53 Temperature 97 F L Pulse Rate 87 77 Respiratory 22 20 Rate Blood Pressure 133/88 O2 Sat by Pulse 100 Oximetry 09/11/21 21:59 Temperature Pulse Rate 84 Respiratory Rate Blood Pressure O2 Sat by Pulse Oximetry Medical Decision Making - Medical Decision Making Patient presents to symptomology consistent with bronchospasm. Patient had childhood asthma. Cough is been for 3 months. Patient likely has onset of adult asthma. Wheezing noted on physical examination. Patient does not appear to be ill or toxic. Patient's COVID-19 testing is negative. Streptococcal test is negative. Reevaluation after breathing treatment shows better air movement. Patient presents symptomology consistent with mild asthma exacerbation. Patient has not had a controller medication. We'll have the patient follow-up with her primary care physician. Prednisone 50 mg daily for 5 days. Albuterol inhaler Patient educated on treatment plan. All questions answered. Patient was told to return to the ER for any signs or symptoms worsen. Told to return immediately if any other problems arise. All questions answered. Treatment plan discussed. Patient in agreement Every effort has been made to ensure accuracy of this dictation. However, due to the limitations of electronic medical records and dictation devices, errors in charting still occur. - Lab Data Lab Results 09/11/21 09/11/21 Range/Units 21:45 21:45 Coronavirus (PCR) Not Detected (Not Detectd) Group A Strep Rapid Negative (Negative) - Radiology Data Radiology results: report reviewed, image reviewed Disposition Clinical Impression: Asthma exacerbation Disposition: HOME SELF-CARE Condition: Good Instructions (If sedation given, give patient instructions): Asthma (ED) Additional Instructions: Follow-up with your regular physician as directed. Return to the ER immediately if any symptoms worsen, new symptoms arise, or any other problems develop. Is patient prescribed a controlled substance at d/c from ED?: No Referrals: Nasim Resendiz MD [Primary Care Provider] - 1-2 days Time of Disposition: 22:35
--- NOTE | 2021-09-11 22:00 | XR ---
EXAMINATION TYPE: XR chest 2V DATE OF EXAM: 09/11/2021 COMPARISON: 12/24/2020 HISTORY: Cough TECHNIQUE: 2 views FINDINGS: Heart and mediastinum are normal. Lungs are clear. Diaphragm is normal. Bony thorax appears normal. IMPRESSION: Mai chest. No change.
[2021-09-11] MEDS ORDERED: ALBUTEROL NEB (CONC) 2.5 MG/0.5 ML INHALATION STA (22:39)
[2021-09-11 23:12] VITALS: BP 130/77; PULSE 92; RESP 16; TEMP 97.8
== END 2021-09-11 23:11 | disposition home or self-care (01) ==
LOC: EC 20:52
DX: J45.901 Unspecified asthma with (acute) exacerbation (principal); M79.7 Fibromyalgia; Z20.822 Contact with and (suspected) exposure to COVID-19; Z86.16 Personal history of COVID-19; Z98.51 Tubal ligation status
CPT/HCPCS: 99285; 94640 ×2; 87081; 87430; 87635; 71046; J7512

== ENCOUNTER 2021-09-13 14:08 | Emergency (ER) | payer OTHER ==
[2021-09-13 14:14] VITALS: TEMP 97.5
[2021-09-13] MEDS ORDERED: ALBUTEROL NEBULIZED 2.5 MG/3 ML INHALATION STA (16:06)
[2021-09-13] MEDS ORDERED: DEXAMETHASONE SOD PHOSPHATE 10 MG/ML 1 ML VIAL IVP STA (16:30)
[2021-09-13 16:33] LABS: Basophils % (A) 0 %; Eosinophils # (A) 0.1 k/uL (0-0.7); Eosinophils % (A) 1 %; HCT 44.9 % (34.0-46.0); HGB 14.4 gm/dL (11.4-16.0); Lymphocytes # (A) 1.1 k/uL (1.0-4.8); Lymphocytes % (A) 9 %; MCH 28.7 pg (25.0-35.0); MCHC 32.1 g/dL (31.0-37.0); MCV 89.3 fL (80.0-100.0); Mean Platelet Volume 7.7; Monocytes # (A) 0.1 k/uL (0-1.0); Monocytes % (A) 1 %; Neutrophils # (A) 11.2 k/uL (1.3-7.7); Neutrophils % (A) 89 %; Platelet Count 377 k/uL (150-450); RBC 5.03 m/uL (3.80-5.40); RDW 14.2 % (11.5-15.5); WBC 12.6 k/uL (3.8-10.6)
--- NOTE | 2021-09-13 16:36 | XR ---
EXAMINATION TYPE: XR chest 2V DATE OF EXAM: 09/13/2021 COMPARISON: X-ray dated 09/11/2021 HISTORY: Difficulty breathing TECHNIQUE: Frontal and lateral views of the chest are obtained. FINDINGS: Grossly unremarkable lungs. No sizable pleural effusion or definite pneumothorax. No cardiomegaly. Un remarkable bony thoracic cage. IMPRESSION: Unremarkable chest x-ray.
[2021-09-13 16:44] LABS: Potassium 4.2 mmol/L (3.5-5.1)
[2021-09-13 16:45] LABS: ALT 27 U/L (4-34); AST 25 U/L (14-36); African American GFR (CKD) >90 (>60 ml/min/1.73 sqM); Albumin 4.4 g/dL (3.5-5.0); Alkaline Phosphatase 97 U/L (38-126); Anion Gap 9 mmol/L; Blood Urea Nitrogen 13 mg/dL (7-17); Calcium 9.5 mg/dL (8.4-10.2); Carbon Dioxide 21 mmol/L (22-30); Chloride 106 mmol/L (98-107); Glucose 118 mg/dL (74-99); Non-African American GFR(CKD) >90 (>60 ml/min/1.73 sqM); Sodium 136 mmol/L (137-145); Total Bilirubin 0.4 mg/dL (0.2-1.3); Total Protein 8.1 g/dL (6.3-8.2)
[2021-09-13 16:49] LABS: INR 0.9 (<1.2); Partial Thromboplastin Time 25.7 sec (22.0-30.0); Prothrombin Time 10.3 sec (9.0-12.0)
[2021-09-13 17:07] VITALS: BP 136/85; PULSE 100; RESP 16
[2021-09-13 17:17] LABS: Influenza A Not Detected (Not Detectd); Influenza B Not Detected (Not Detectd)
--- NOTE | 2021-09-13 17:21 | ED ---
SOB HPI - General Chief Complaint: Shortness of Breath Stated Complaint: Shortness of Breath, Chest pain Time Seen by Provider: 09/13/21 15:37 Source: patient Mode of arrival: ambulatory Limitations: no limitations - History of Present Illness Initial Comments: Patient is a 36-year-old female who presents to the emergency department with a chief complaint of cough and shortness of breath. Patient was evaluated in the emergency department on Monday where she was given a breathing treatment and discharge with prednisone and albuterol inhaler. Patient states she is taking these medications as prescribed with no relief. Patient states she has incre ased chest discomfort only with coughing. She has associated nasal congestion/runny nose. Patient states her sore throat is improving. Patient states that before this week she has not had an asthma exacerbation in several years. She denies any known exposure to chemical or mold. Patient has no other concerns at this time including fever, chills, headache, chest pain, abdominal pain, nausea, vomiting, and burning with urination. - Related Data Previous Rx's Medication Instructions Recorded Amoxicillin/Potassium Clav 1 tab PO Q12HR #20 tab 04/23/21 [Augmentin 875-125 Tablet] Albuterol Inhaler [Ventolin Hfa 1 puff INHALATION Q4H PRN #8 gm 09/11/21 Inhaler] predniSONE 50 mg PO DAILY #5 tab 09/11/21 Amoxicillin/Potassium Clav 1 tab PO Q12HR 5 Days #10 tab 09/13/21 [Augmentin 875-125 Tablet] Benzonatate [Tessalon Perles] 100 mg PO TID PRN #15 capsule 09/13/21 Allergies Allergy/AdvReac Type Severity Reaction Status Date / Time No Known Allergies Allergy Verified 09/13/21 14:14 Review of Systems ROS Statement: Those systems with pertinent positive or pertinent negative responses have been documented in the HPI. ROS Other: All systems not noted in ROS Statement are negative. Past Medical History Past Medical History: Asthma, Fibromyalgia Additional Past Medical History / Comment(s): covid, History of Any Multi-Drug Resistant Organisms: None Reported Past Surgical History: Tubal Ligation Past Psychological History: No Psychological Hx Reported Smoking Status: Never smoker Past Alcohol Use History: None Reported Past Drug Use History: None Reported General Exam Limitations: no limitations General appearance: alert, in no apparent distress Head exam: Present: atraumatic, normocephalic, normal inspection Eye exam: Present: normal appearance, PERRL, EOMI. Absent: scleral icterus, conjunctival injection, periorbital swelling ENT exam: Present: normal oropharynx, mucous membranes moist, TM's normal bilaterally, normal external ear exam, other (No tenderness with palpation of the frontal, occipital, maxillary areas) Neck exam: Present: normal inspection, full ROM Respiratory exam: Present: normal lung sounds bilaterally, chest wall tenderness (Left-sided). Absent: respiratory distress, wheezes, rales, rhonchi, stridor, accessory muscle use, decreased breath sounds, prolonged expiratory Cardiovascular Exam: Present: regular rate, normal rhythm, normal heart sounds. Absent: systolic murmur, diastolic murmur, rubs, gallop, clicks GI/Abdominal exam: Present: soft, normal bowel sounds. Absent: distended, tenderness, guarding, rebound, rigid Neurological exam: Present: alert, oriented X3, CN II-XII intact Psychiatric exam: Present: normal affect, normal mood Skin exam: Present: warm, dry, intact, normal color. Absent: rash Course Vital Signs 09/13/21 09/13/21 09/13/21 14:12 15:39 16:32 Temperature 97.5 F L Pulse Rate 85 80 Respiratory 20 22 Rate Blood Pressure 146/85 O2 Sat by Pulse 100 Oximetry 09/13/21 09/13/21 16:39 17:04 Temperature Pulse Rate 74 100 Respiratory 16 Rate Blood Pressure 136/85 O2 Sat by Pulse 100 Oximetry Medical Decision Making - Medical Decision Making This is a 36-year-old female who presents with cough and shortness of breath. Thorough history and examination were performed. Oxygen is 100% room air. Lungs are clear to auscultation bilaterally with no wheezing. Patient has mild white count at 12.6. COVID-19 influenza A/B are not detected. Chest x-ray is unremarkable. Patient given breathing treatment and Decadron. I did speak with the respiratory therapist who states this is likely not inflammatory etiology. Patient and I discussed results. At this time etiology of symptoms is unknown but possibly due to viral or bacterial sinusitis. Patient and I discussed that postnasal drip may be irritating her throat. Patient will be discharged with Augmentin and Tessalon Perles. She is instructed to continue to take the prednisone and use the albuterol inhaler at home. She is highly encouraged to follow up with her primary care provider. Patient verbalizes understanding and is agreeable to plan. Dr. Cates is my attending. - Lab Data Result diagrams: 09/13/21 16:21 09/13/21 16:21 Lab Results 09/13/21 09/13/21 09/13/21 Range/Units 16:21 16:21 16:21 WBC 12.6 H (3.8-10.6) k/uL RBC 5.03 (3.80-5.40) m/uL Hgb 14.4 (11.4-16.0) gm/dL Hct 44.9 (34.0-46.0) % MCV 89.3 (80.0-100.0) fL MCH 28.7 (25.0-35.0) pg MCHC 32.1 (31.0-37.0) g/dL RDW 14.2 (11.5-15.5) % Plt Count 377 (150-450) k/uL MPV 7.7 Neutrophils % 89 % Lymphocytes % 9 % Monocytes % 1 % Eosinophils % 1 % Basophils % 0 % Neutrophils # 11.2 H (1.3-7.7) k/uL Lymphocytes # 1.1 (1.0-4.8) k/uL Monocytes # 0.1 (0-1.0) k/uL Eosinophils # 0.1 (0-0.7) k/uL Basophils # 0.0 (0-0.2) k/uL PT 10.3 (9.0-12.0) sec INR 0.9 (<1.2) APTT 25.7 (22.0-30.0) sec D-Dimer 0.47 (<0.60) mg/L FEU Sodium 136 L (137-145) mmol/L Potassium 4.2 (3.5-5.1) mmol/L Chloride 106 (98-107) mmol/L Carbon Dioxide 21 L (22-30) mmol/L Anion Gap 9 mmol/L BUN 13 (7-17) mg/dL Creatinine 0.71 (0.52-1.04) mg/dL Est GFR (CKD-EPI)AfAm >90 (>60 ml/min/1.73 sqM) Est GFR (CKD-EPI)NonAf >90 (>60 ml/min/1.73 sqM) Glucose 118 H (74-99) mg/dL Plasma Lactic Acid Antonio (0.7-2.0) mmol/L Calcium 9.5 (8.4-10.2) mg/dL Total Bilirubin 0.4 (0.2-1.3) mg/dL AST 25 (14-36) U/L ALT 27 (4-34) U/L Alkaline Phosphatase 97 (38-126) U/L Total Protein 8.1 (6.3-8.2) g/dL Albumin 4.4 (3.5-5.0) g/dL Influenza Type A (PCR) (Not Detectd) Influenza Type B (PCR) (Not Detectd) RSV (PCR) (Not Detectd) SARS-CoV-2 (PCR) (Not Detectd) 09/13/21 09/13/21 Range/Units 16:21 16:21 WBC (3.8-10.6) k/uL RBC (3.80-5.40) m/uL Hgb (11.4-16.0) gm/dL Hct (34.0-46.0) % MCV (80.0-100.0) fL MCH (25.0-35.0) pg MCHC (31.0-37.0) g/dL RDW (11.5-15.5) % Plt Count (150-450) k/uL MPV Neutrophils % % Lymphocytes % % Monocytes % % Eosinophils % % Basophils % % Neutrophils # (1.3-7.7) k/uL Lymphocytes # (1.0-4.8) k/uL Monocytes # (0-1.0) k/uL Eosinophils # (0-0.7) k/uL Basophils # (0-0.2) k/uL PT (9.0-12.0) sec INR (<1.2) APTT (22.0-30.0) sec D-Dimer (<0.60) mg/L FEU Sodium (137-145) mmol/L Potassium (3.5-5.1) mmol/L Chloride (98-107) mmol/L Carbon Dioxide (22-30) mmol/L Anion Gap mmol/L BUN (7-17) mg/dL Creatinine (0.52-1.04) mg/dL Est GFR (CKD-EPI)AfAm (>60 ml/min/1.73 sqM) Est GFR (CKD-EPI)NonAf (>60 ml/min/1.73 sqM) Glucose (74-99) mg/dL Plasma Lactic Acid Antonio 1.6 (0.7-2.0) mmol/L Calcium (8.4-10.2) mg/dL Total Bilirubin (0.2-1.3) mg/dL AST (14-36) U/L ALT (4-34) U/L Alkaline Phosphatase (38-126) U/L Total Protein (6.3-8.2) g/dL Albumin (3.5-5.0) g/dL Influenza Type A (PCR) Not Detected (Not Detectd) Influenza Type B (PCR) Not Detected (Not Detectd) RSV (PCR) Not Detected (Not Detectd) SARS-CoV-2 (PCR) Not Detected (Not Detectd) Disposition Clinical Impression: Cough, Shortness of breath Disposition: HOME SELF-CARE Condition: Good Instructions (If sedation given, give patient instructions): Asthma (ED), Sinusitis (ED) Additional Instructions: Please take medication as prescribed. Continue to take your prednisone and albuterol at home. Follow-up with primary care provider in one to 2 days. Re turn to emergency department if you experience new, concerning, or worsening symptoms. Prescriptions: Amoxicillin/Potassium Clav [Augmentin 875-125 Tablet] 1 tab PO Q12HR 5 Days #10 tab Benzonatate [Tessalon Perles] 100 mg PO TID PRN #15 capsule PRN Reason: Cough Is patient prescribed a controlled substance at d/c from ED?: No Referrals: Nasim Resendiz MD [Primary Care Provider] - 1-2 days Time of Disposition: 17:21
== END 2021-09-13 17:52 | disposition home or self-care (01) ==
LOC: EC 14:08
DX: R06.02 Shortness of breath (principal); R50.9 Fever, unspecified; J45.909 Unspecified asthma, uncomplicated; Z20.822 Contact with and (suspected) exposure to COVID-19
CPT/HCPCS: 36415; 94640; 85379; 80053; 83605; 85025; 85610; 85730; 87636; 71046; 99285; 96374; J1100

== ENCOUNTER 2021-11-25 08:26 | Emergency (ER) | payer OTHER ==
[2021-11-25 08:42] VITALS: BP 137/90; PULSE 90; RESP 18; TEMP 97.8
--- NOTE | 2021-11-25 08:57 | ED ---
General Adult HPI - General Chief complaint: Back Pain/Injury Stated complaint: back pain Time Seen by Provider: 11/25/21 08:44 Source: patient, RN notes reviewed, old records reviewed Mode of arrival: ambulatory Limitations: no limitations - History of Present Illness Initial comments: 36-year-old female presenting for evaluation of upper back pain which is been present for several months. Patient denies anterior chest pain. Denies difficulty breathing. No fever. She's had pain on the right upper back for many months. She's been seen by her primary care physician and tried anti- inflammatories. This pain is worse with movement predominantly of the right arm but does seem to be on both sides. No fever. No dyspnea. No cough. No weakness in the arms or legs. - Related Data Previous Rx's Medication Instructions Recorded Amoxicillin/Potassium Clav 1 tab PO Q12HR #20 tab 04/23/21 [Augmentin 875-125 Tablet] Albuterol Inhaler [Ventolin Hfa 1 puff INHALATION Q4H PRN #8 gm 09/11/21 Inhaler] predniSONE 50 mg PO DAILY #5 tab 09/11/21 Amoxicillin/Potassium Clav 1 tab PO Q12HR 5 Days #10 tab 09/13/21 [Augmentin 875-125 Tablet] Benzonatate [Tessalon Perles] 100 mg PO TID PRN #15 capsule 09/13/21 Cyclobenzaprine [Flexeril] 5 mg PO TID PRN #9 tablet 11/25/21 Ibuprofen [Motrin] 600 mg PO Q8HR PRN #24 tab 11/25/21 Allergies Allergy/AdvReac Type Severity Reaction Status Date / Time No Known Allergies Allergy Verified 11/25/21 08:41 Review of Systems ROS Statement: Those systems with pertinent positive or pertinent negative responses have been documented in the HPI. ROS Other: All systems not noted in ROS Statement are negative. Past Medical History Past Medical History: Asthma, Fibromyalgia Additional Past Medical History / Comment(s): covid, History of Any Multi-Drug Resistant Organisms: None Reported Past Surgical History: Tubal Ligation Past Psychological History: No Psychological Hx Reported Smoking Status: Never smoker Past Alcohol Use History: None Reported Past Drug Use History: None Reported General Exam Limitations: no limitations General appearance: alert, in no apparent distress Head exam: Present: atraumatic, normocephalic Eye exam: Present: normal appearance, PERRL ENT exam: Present: normal exam Neck exam: Present: normal inspection. Absent: tenderness, meningismus Respiratory exam: Present: normal lung sounds bilaterally. Absent: respiratory distress, wheezes Cardiovascular Exam: Present: regular rate, normal rhythm GI/Abdominal exam: Present: soft. Absent: distended, tenderness, guarding, rebound Extremities exam: Present: normal inspection, normal capillary refill, other (Normal range of motion of the upper extremities however movement predominantly of the right arm does worsen pain) Back exam: Present: paraspinal tenderness (Paraspinal tenderness over the right rhomboid) Neurological exam: Present: alert, oriented X3, CN II-XII intact, other (Normal strength throughout, 5 out of 5 in all extremities). Absent: motor sensory deficit Psychiatric exam: Present: normal affect, normal mood Skin exam: Present: warm, dry, intact. Absent: cyanosis, diaphoretic Course Vital Signs 11/25/21 08:39 Temperature 97.8 F Pulse Rate 90 Respiratory 18 Rate Blood Pressure 137/90 O2 Sat by Pulse 99 Oximetry Medical Decision Making - Medical Decision Making 36-year-old female with chronic upper back pain. No recent injury. No fever. No chest pain or difficulty breathing. Patient does have tenderness over the ri ght paraspinal thoracic muscles and right rhomboids. This is worse with range of motion of the right scapula and arm. She should trial anti-inflammatories. She should follow with her primary care physician for possible physical therapy as this is been an ongoing issue. Disposition Clinical Impression: Muscle strain, Mechanical back pain Disposition: HOME SELF-CARE Condition: Good Instructions (If sedation given, give patient instructions): Muscle Strain (DC) Prescriptions: Cyclobenzaprine [Flexeril] 5 mg PO TID PRN #9 tablet PRN Reason: Muscle Pain Ibuprofen [Motrin] 600 mg PO Q8HR PRN #24 tab PRN Reason: Pain Is patient prescribed a controlled substance at d/c from ED?: No Referrals: Nasim Resendiz MD [Primary Care Provider] - 1-2 days Time of Disposition: 08:56
== END 2021-11-25 09:12 | disposition home or self-care (01) ==
LOC: EC 08:26
DX: S29.012A Strain of muscle and tendon of back wall of thorax, initial encounter (principal); J45.909 Unspecified asthma, uncomplicated; Z86.16 Personal history of COVID-19; X58.XXXA Exposure to other specified factors, initial encounter
CPT/HCPCS: 99283

== ENCOUNTER 2022-04-23 18:01 | Emergency (ER) | payer OTHER ==
[2022-04-23 19:17] VITALS: RESP 16
[2022-04-23] MEDS ORDERED: DEXAMETHASONE SOD PHOSPHATE 10 MG/ML 1 ML VIAL IM STA (19:19)
[2022-04-23] MEDS ORDERED: ACETAMINOPHEN TAB 325 MG TAB PO STA (19:19)
[2022-04-23] MEDS ORDERED: KETOROLAC 15 MG/ML 1 ML VIAL IM STA (19:19)
[2022-04-23] MEDS ORDERED: METOCLOPRAMIDE 10 MG TAB PO STA (19:19)
[2022-04-23] MEDS ORDERED: BUTALB/APAP/CAFF 50-325-40MG TAB PO STA (20:19)
--- NOTE | 2022-04-23 20:25 | ED ---
Fever HPI - General Chief Complaint: Fever Stated Complaint: Cold/Flu Time Seen by Provider: 04/23/22 19:14 Source: patient Mode of arrival: ambulatory Limitations: no limitations - History of Present Illness Initial Comments: Patient is a 37-year-old female presenting with chief complaint of fever. Patient states that for the past few days she has been running a fever, as well as experiencing body aches and headache. She admits to some congestion. No cough, difficulty breathing, or chest pain. No abdominal pain, nausea, vomiting, diarrhea, hematochezia, melena. Motrin and Tylenol provided little relief. No numbness or tingling. No neck pain or stiffness. No vision or hearing changes. Headache is not thunderclap. - Related Data Previous Rx's Medication Instructions Recorded Amoxicillin/Potassium Clav 1 tab PO Q12HR #20 tab 04/23/21 [Augmentin 875-125 Tablet] Albuterol Inhaler [Ventolin Hfa 1 puff INHALATION Q4H PRN #8 gm 09/11/21 Inhaler] predniSONE 50 mg PO DAILY #5 tab 09/11/21 Amoxicillin/Potassium Clav 1 tab PO Q12HR 5 Days #10 tab 09/13/21 [Augmentin 875-125 Tablet] Benzonatate [Tessalon Perles] 100 mg PO TID PRN #15 capsule 09/13/21 Cyclobenzaprine [Flexeril] 5 mg PO TID PRN #9 tablet 11/25/21 Ibuprofen [Motrin] 600 mg PO Q8HR PRN #24 tab 11/25/21 Butalb/APAP/Caff 50-325-40Mg 1 tab PO Q4H PRN #12 tablet 04/23/22 [Fioricet 50-325-40] Allergies Allergy/AdvReac Type Severity Reaction Status Date / Time shellfish derived Allergy Unknown Verified 04/23/22 18:13 Review of Systems ROS Statement: Those systems with pertinent positive or pertinent negative responses have been documented in the HPI. ROS Other: All systems not noted in ROS Statement are negative. Past Medical History Past Medical History: Asthma, Fibromyalgia Additional Past Medical History / Comment(s): covid, History of Any Multi-Drug Resistant Organisms: None Reported Past Surgical History: Tubal Ligation Past Psychological History: No Psychological Hx Reported Smoking Status: Never smoker Past Alcohol Use History: None Reported Past Drug Use History: None Reported General Exam Limitations: no limitations General appearance: alert, in no apparent distress Head exam: Present: atraumatic, normocephalic, normal inspection Eye exam: Present: normal appearance, PERRL, EOMI. Absent: scleral icterus, conjunctival injection, periorbital swelling Neck exam: Present: normal inspection, full ROM Respiratory exam: Present: normal lung sounds bilaterally. Absent: respiratory distress, wheezes, rales, rhonchi, stridor Cardiovascular Exam: Present: regular rate, normal rhythm, normal heart sounds. Absent: systolic murmur, diastolic murmur, rubs, gallop, clicks Neurological exam: Present: alert, oriented X3, CN II-XII intact Psychiatric exam: Present: normal affect, normal mood Skin exam: Present: warm, dry, intact, normal color. Absent: rash Course Vital Signs 04/23/22 04/23/22 04/23/22 18:10 19:16 20:31 Temperature 99.6 F 99.2 F 98.9 F Pulse Rate 114 H 90 72 Respiratory 18 16 16 Rate Blood Pressure 116/84 142/96 128/80 O2 Sat by Pulse 99 99 99 Oximetry Medical Decision Making - Medical Decision Making Patient is a 57-year-old female presenting with chief complaint of fever, body aches, headache. Physical examination is unremarkable, heart and lungs are clear to auscultation, no focal neurological deficits. Patient is given migraine cocktail and swabbed for Covid. No cough, chest pain, difficulty breathing, patient declining chest x-ray, states that symptoms are primarily located in the sinuses. Patient is positive for Covid. I educated her on supportive treatment and quarantine guidelines. I offered her Paxlovid, I explained to her the potential of rebound symptoms, patient declined Paxlovid at this time. Headache has improved. She appears stable for discharge with outpatient follow-up at this time. Follow-up with PCP. Report back to ER with any new or worsening symptoms. Discussed return parameters and answered all questions. Patient conveyed verbal understanding and agreed to the plan. I discussed this case in detail with my attending Dr. Lieberman. - Lab Data Lab Results 04/23/22 Range/Units 18:15 Coronavirus (PCR) Detected A (Not Detectd) Disposition Clinical Impression: COVID Disposition: HOME SELF-CARE Condition: Good Instructions (If sedation given, give patient instructions): Fever in Adults (ED), COVID-19 (Coronavirus Disease 2019) (ED) Additional Instructions: Quarantine for 5 days starting from your first day of symptoms. If after 5 days you are symptom and fever free for 24 hours, you may go out in public while wearing a mask at all times for an additional 5 days. Do not end quarantine until you are fever free for 24 hours and symptoms have dramatically improved. Follow-up with PCP. Report back to ER with any new or worsening symptoms. Take medication as prescribed, this medication contains 325 mg of Tylenol per tablet, do not combine this medication with Tylenol. Do not take more than 3000 mg of Tylenol in one day. Take Motrin as needed for headache. Stay well-hydrated and get plenty of rest. Prescriptions: Butalb/APAP/Caff 50-325-40Mg [Fioricet 50-325-40] 1 tab PO Q4H PRN #12 tablet PRN Reason: Headache Is patient prescribed a controlled substance at d/c from ED?: No Referrals: Nasim Resendiz MD [Primary Care Provider] - 1-2 days Time of Disposition: 20:22
[2022-04-23 20:32] VITALS: BP 128/80; PULSE 72; TEMP 98.9
== END 2022-04-23 20:32 | disposition home or self-care (01) ==
LOC: EC 18:01
DX: U07.1 COVID-19 (principal); J45.909 Unspecified asthma, uncomplicated; Z79.51 Long term (current) use of inhaled steroids; Z91.013 Allergy to seafood
CPT/HCPCS: 87635; 99284; 96372 ×2; J1100; J1885